=== PATIENT | male | born 1945 | race Caucasian/White ===

== ENCOUNTER 2017-04-17 08:00 | Outpatient (CLI) | payer MEDICARE, OTHER ==
[2017-04-17 19:26] LABS: PSA FREE 2.668 ng/mL (0.16-2.81)
[2017-04-17 19:29] LABS: PSA TOTAL 10.898 ng/mL (0.000-2.000)
== END 2017-04-17 08:01 | disposition home or self-care (01) ==
LOC: LAB.WCP 08:00
PROVIDERS: ATTEND Urology
DX: R97.20 Elevated prostate specific antigen [PSA] (principal)
CPT/HCPCS: 36415; 84154

== ENCOUNTER 2017-04-24 09:23 | Outpatient (CLI) | payer MEDICARE, OTHER ==
[2017-04-24 14:01] LABS: CHOL/HDL RATIO 2.5 (<5.0); CHOLESTEROL 151 mg/dL; HDL CHOLESTEROL 60 mg/dL; LDL/HDL RATIO 1.3 (<3.6); MAGNESIUM 1.9 mg/dL (1.7-2.8); TRIGLYCERIDES 78 mg/dL; VLDL CHOLESTEROL 16 mg/dL
== END 2017-04-24 09:24 | disposition home or self-care (01) ==
LOC: LAB.WCP 09:23
PROVIDERS: ATTEND Internal Medicine Cardiovascular Disease
DX: I10 Essential (primary) hypertension (principal); I47.1 Supraventricular tachycardia; I44.4 Left anterior fascicular block
CPT/HCPCS: 36415; 80061; 83735; 84443

== ENCOUNTER 2017-11-16 15:15 | Observation (INO) | payer MEDICARE, OTHER ==
--- NOTE | 2017-11-16 15:56 | ED Physician Documentation ---
PD HPI FOCAL NEURO - Stated complaint Stated Complaint: NUMBNESS - Chief complaint Chief Complaint: Neuro - History obtained from History obtained from: Patient - History of Present Illness Timing - onset: Today Timing - duration: Minutes (15) Timing - details: Abrupt onset, Now resolved Severity of deficit: Moderate Weakness: Hand, Leg, Right Numbness: Hand Associated symptoms: Headache. 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 He noted the right leg appeared to be weak at the thigh and kept giving out on him. 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 He states this lasted some 15 minutes and eventually resolved. He states that he did not stop to rest when symptoms started. He was at the [employer] was a hot day and he does not hydrate well. Review of Systems Constitutional: denies: Fever, Chills, Myalgias, Fatigue Eyes: denies: Loss of vision, Decreased vision, Photophobia Ears: reports: Loss of hearing. denies: Ear pain, Drainage/discharge Nose: denies: Rhinorrhea / runny nose, Congestion Throat: denies: Sore throat Cardiac: denies: Chest pain / pressure, Palpitations Respiratory: denies: Dyspnea, Cough GI: denies: Abdominal Pain, Nausea, Vomiting : denies: Dysuria, Frequency Skin: denies: Rash Musculoskeletal: denies: Neck pain, Back pain, Extremity pain Neurologic: reports: Focal weakness, Numbness, Headache. denies: Generalized weakness, Syncope, Seizure, Confused, Head injury, LOC PD PAST MEDICAL HISTORY - Past Medical History Cardiovascular: Hypertension Respiratory: None Neuro: None Endocrine/Autoimmune: Other : None HEENT: None Musculoskeletal: Osteoarthritis, Chronic back pain Derm: None - Past Surgical History Past Surgical History: Yes General: Other Derm: Skin cancer surgery - Present Medications Home Medications: Ambulatory Orders Medication Instructions Recorded Confirmed Metoprolol Tartrate 12.5 mg ORAL BID 10/21/14 10/22/14 Tamsulosin [Flomax] 0.4 mg ORAL BID 10/21/14 10/21/14 - Allergies Allergies/Adverse Reactions: Allergies Allergy/AdvReac Type Severity Reaction Status Date / Time oxacillin AdvReac Unknown Verified 10/22/14 08:52 - Social History Does the pt smoke?: No Smoking Status: Never smoker ETOH Use: Liquor Does the pt have substance abuse?: No - Immunizations Immunizations are current?: Yes - POLST Patient has POLST: No PD ED PE NORMAL - Vitals Vital signs reviewed: Yes (normal ) - General General: Alert and oriented X 3, No acute distress, Well developed/nourished - HEENT HEENT: Atraumatic, PERRL, EOMI, Dentition benign, Other (dry mucous membranes ) - Neck Neck: Supple, no meningeal sign, No bony TTP, No bruit - Cardiac Cardiac: RRR, No murmur - Respiratory Respiratory: No respiratory distress, Clear bilaterally - Abdomen Abdomen: Soft, Non tender - Back Back: No CVA TTP, No spinal TTP - Derm Derm: Normal color, Warm and dry, No rash - Extremities Extremities: No deformity, No edema - Neuro Neuro: Alert and oriented X 3, 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, No motor deficit, No sensory deficit, Normal speech Eye Opening: Spontaneous Motor: Obeys Commands Verbal: Oriented GCS Score: 15 - Psych Psych: Normal mood, Normal affect NIHSS - Time Time: 16:00 - Level of Consciousness Level of consciousness: (0) Alert, Keenly responsive LOC Questions: (0) Answers both Q's correct LOC Commands: (0) Performs both correctly - Gaze Best Gaze: (0) Normal - Visual Visual: (0) No loss - Facial Palsy Facial Palsy: (0) Normal, symmetrical movement - Motor Arms (both separate) Motor Arm (right): (0) No drift Motor Arm (left): (0) No drift - Motor Legs (both separate) Motor Leg (right): (0) No drift Motor Leg (left): (0) No drift - Limb Ataxia Limb Ataxia: (0) Absent - Sensory Sensory: (0) Normal - Best Language Best Language: (0) No aphasia - Dysarthria Dysarthria: (0) Normal - Extinction and Inattention (formally neg Extinction and inattention: (0) No abnormality - Total Score/Results Total Score/Result: 0 Results - Vitals Vitals: Vital Signs - 24 hr 11/16/17 11/16/17 15:22 17:24 Temperature 36.0 C L 36.4 C L Heart Rate 75 60 Respiratory 18 18 Rate Blood Pressure 116/73 129/83 H O2 Saturation 95 95 Oxygen O2 Source Room air - EKG (time done) 1535 Rate: Rate (enter#) (71) Rhythm: NSR, LAE [place]: LAD Other comments: Other comments (early transition) Compare to prior EKG: Old EKG unavailable Computer interpretation: Disagree with computer (I do not see ST elevation in the inferior leads. ) - Labs Labs: Laboratory Tests 11/16/17 11/16/17 11/16/17 16:40 16:40 16:40 WBC 6.5 RBC 5.09 Hgb 14.9 Hct 44.2 MCV 86.9 MCH 29.3 MCHC 33.7 RDW 13.6 Plt Count 156 MPV 8.9 Neut # (Auto) 4.1 Lymph # (Auto) 1.7 [place] # (Auto) 0.5 Eos # (Auto) 0.1 Baso # (Auto) 0.0 Absolute Nucleated RBC 0.00 Nucleated RBC % 0.0 Sodium 139 Potassium 4.1 Chloride 109 Carbon Dioxide 22 Anion Gap 8.0 BUN 24 H Creatinine 1.4 H Estimated GFR (MDRD) 50 L Glucose 99 Calcium 9.3 Total Bilirubin 1.2 H AST 20 ALT 18 Alkaline Phosphatase 53 Troponin I < 0.04 Total Protein 5.9 L Albumin 4.0 Globulin 1.9 L Albumin/Globulin Ratio 2.1 Lipase 35 - Rads (name of study) CT head without Radiology: Prelim report reviewed (Impression: 1. No acute or focal intracranial abnormality. Nonfocal white matter disease. 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 He does have hypertension but is otherwise healthy. CT is without hemorrhage and with microangiopathy. - Sepsis Event Vital Signs: Vital Signs - 24 hr 11/16/17 11/16/17 15:22 17:24 Temperature 36.0 C L 36.4 C L Heart Rate 75 60 Respiratory 18 18 Rate Blood Pressure 116/73 129/83 H O2 Saturation 95 95 Oxygen O2 Source Room air Departure - Departure Disposition: 66 [facility] DC/Xfer Clinical Impression: TIA (transient ischemic attack) Qualifiers: Transient cerebral ischemia type: unspecified Qualified Code(s): G45.9 - Transient cerebral ischemic attack, unspecified Condition: Stable
[2017-11-16] MEDS ORDERED: ASPIRIN CHEW 81 MG TABLET PO STA (16:27)
[2017-11-16 16:45] LABS: BASOPHILS % (AUTO) 0.6 %; EOSINOPHILS # (AUTO) 0.1 10^3/uL (0.0-0.7); EOSINOPHILS % (AUTO) 2.2 %; HGB - HEMOGLOBIN 14.9 g/dL (14.0-18.0); LYMPHOCYTES # (AUTO) 1.7 10^3/uL (1.5-3.5); LYMPHOCYTES % (AUTO) 26.1 %; MEAN CORPUSCULAR HEMOGLOBIN 29.3 pg (27.0-31.0); MEAN CORPUSCULAR HGB CONC 33.7 g/dL (32.0-36.0); MEAN CORPUSCULAR VOLUME 86.9 fL (80.0-94.0); MEAN PLATELET VOLUME 8.9 fL (7.4-11.4); MONOCYTES # (AUTO) 0.5 10^3/uL (0.0-1.0); MONOCYTES % (AUTO) 8.3 %; NEUTROPHILS # (AUTO) 4.1 10^3/uL (1.5-6.6); NEUTROPHILS % (AUTO) 62.8 %; PLT - PLATELET COUNT 156 10^3/uL (130-450); RED BLOOD COUNT 5.09 10^6/uL (4.70-6.10); RED CELL DISTRIBUTION WIDTH 13.6 % (12.0-15.0); WHITE BLOOD COUNT 6.5 x10^3/uL (4.8-10.8)
--- NOTE | 2017-11-16 17:06 | CT Report ---
Procedure Date: 11/16/2017 Accession Number: [id number] / [id number] Procedure: CT - Head W/O CPT Code: FULL RESULT: EXAM: CT HEAD EXAM DATE: 11/16/2017 04:50 PM. CLINICAL HISTORY: TIA with right sided symptoms. COMPARISON: MRI 11/18/2005. TECHNIQUE: Multiaxial CT images were obtained from the foramen magnum to the vertex. Reformats: Coronal. IV contrast: None. In accordance with CT protocol optimization, one or more of the following dose reduction techniques were utilized for this exam: automated exposure control, adjustment of mA and/or KV based on patient size, or use of iterative reconstructive technique. FINDINGS: Parenchyma: There is mild nonfocal periventricular white matter hypodensity. Negative for acute intracranial hemorrhage. No midline shift or mass effect. Extraaxial Spaces: No subdural or epidural collections identified. Ventricles: Normal in size and position. Sinuses and Orbits: There is ethmoid sinus mucosal thickening. No air-fluid level. Bones: No evidence of fracture or calvarial defect. Other: None. IMPRESSION: 1. No acute or focal intracranial abnormality. 2. Nonfocal white matter disease. Nonspecific but most commonly age related chronic microangiopathy. RADIA
[2017-11-16 17:09] LABS: ALBUMIN/GLOBULIN RATIO 2.1 (1.0-2.2); BILIRUBIN,TOTAL 1.2 mg/dL (0.2-1.0); CALCIUM 9.3 mg/dL (8.5-10.3); CREATININE 1.4 mg/dL (0.6-1.2); TOTAL PROTEIN 5.9 g/dL (6.7-8.2)
[2017-11-16] MEDS ORDERED: SODIUM CHLORIDE FLUSH 0.9% 10 ML SYRINGE IVP PRN (18:26)
[2017-11-16] MEDS ORDERED: ONDANSETRON 4 MG/2 ML VIAL IVP PRN (18:26)
[2017-11-16] MEDS ORDERED: ACETAMINOPHEN 325 MG TABLET PO PRN (18:26)
--- NOTE | 2017-11-16 18:38 | HISTORY & PHYSICAL EXAMINATION ---
Chief Complaint - Chief Complaint Chief Complaint: TIA History of Present Illness - Admitted From Admitted From:: ER - History Obtained From History obtained from: pt - History of Present Illness HPI Comment/Other: is a 72-yrs-old male with a PMH significant for HTN, CKD, BPH, Osteoarthritis, who present ER for complaint of right upper and low extremities weakness. 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 All this symptoms lasted about 15 minutes then totally resolved before he came to ER department. He denies headache, vision change, chest pain, shortness of breath, fever, chill, cough. CT of head is unremarkable. BUN is 24, creatinine is 1.4 as his baseline. pt was admitted for TIA workup in the observation unit. History - Past Medical History Cardiovascular: reports: Hypertension Respiratory: reports: None Neuro: reports: None Endocrine/Autoimmune: reports: Other : reports: None HEENT: reports: None Musculoskeletal: reports: Osteoarthritis, Chronic back pain Derm: reports: None - Past Surgical History General: reports: Other Derm: reports: Skin cancer surgery - Family & Social History Family History: Mother: , Alzheimer's Disease, CAD, Father: , Cancer, CVA/TIA Family History Comment/Other: pt is living with at [facility], the couple has no child Living arrangement: At home Living Situation: With spouse/s.o. Social History Notes: pt denies cigarette smoking, alcohol and drug problem. - Substance History Use: Uses substance without health or social issues: NONE Abuse: Recurrent use of substance despite neg consequences: NONE - POLST Patient has POLST: Yes POLST Status: DNR Meds/Allgy - Home Medications Home Medications: Ambulatory Orders Medication Instructions Recorded Confirmed Metoprolol Tartrate 12.5 mg ORAL BID 10/21/14 11/16/17 Tamsulosin [Flomax] 0.4 mg ORAL BID 10/21/14 10/21/14 Aspirin [Aspirin EC] 81 mg PO DAILY 11/16/17 11/16/17 Cholecalciferol (Vitamin D3) 2,000 unit PO .Q48HR 11/16/17 11/16/17 [Vitamin D3] Fluticasone [Flonase] 1 sprays MINA BID 11/16/17 11/16/17 Lactobacillus Acidophilus 1 each PO DAILY 11/16/17 11/16/17 [Probiotic Acidophilus] Multivitamin [Theragran] 1 each PO DAILY 11/16/17 11/16/17 [place]-3/Dha/Epa/Fish Oil [Fish Oil 1,000 mg PO DAILY 11/16/17 11/16/17 Conc 1,000 mg Softgel] - Allergies Allergies/Adverse Reactions: Allergies Allergy/AdvReac Type Severity Reaction Status Date / Time oxacillin AdvReac Unknown Verified 10/22/14 08:52 Review of Systems - Constitutional Constitutional: denies: Fatigue, Fever, Chills, Malaise, Weakness, Poor appetite , Diaphoresis, Night sweats, Weight gain, Weight loss - Eyes Eyes: denies: Pain, Irritation, Amaurosis, Blurred vision, Spots in vision, Field loss, Vision loss, Dipolpia, Corrective lenses - Ears, Nose & Throat Ears, Nose & Throat: denies: Ear pain, Hearing loss, Hearing aids, Vertigo, Nasal pain, Nasal discharge, Nosebleeds, Nasal congestion, Postnasal drainage, Dentures, Sore throat, Hoarseness, Mouth lesions, Dental decay - Cardiovascular Cariovascular: denies: Irregular heart rate, Palpitations, Chest pain, Edema, Lightheadedness, Syncope, Exertional dyspnea, Decr. exercise tolerance - Respiratory Respiratory: denies: Cough, Sputum production, Wheezing, Snoring, Hemoptysis, Orthopnea, SOB at rest, SOB with exertion - Gastrointestinal Gastrointestinal: denies: Abdominal pain, Abdominal distention, Constipation, Diarrhea, Change in bowel habits, Rectal bleeding, Black stools, Bloody stools, Nausea, Vomiting, Bile emesis, Coffee grounds emesis, Reflux/heartburn, Bloating - Genitourinary Genitourinary: denies: Dysuria, Frequency, Urgency, Hematuria, Incontinence, Flank pain, Nocturia, Urethral discharge, Sexual dysfunction, Other - Musculoskeletal Musculoskeletal: denies: Muscle pain, Back pain, Muscle aches, Stiffness, Limited range of motion, Muscle weakness, Gout, Joint pain, Joint swelling - Integumentary Integumentary: denies: Rash, Pruritis, Lesions, Dryness, Lumps, Acne, Pigment changes, Nail changes - Neurological Neurological: reports: Focal weakness, Dizziness, Numbness, Memory problems, Abnormal gait, Incoordination. denies: General weakness, Headache, Pre- existing deficit, Seizures, Slurred speech - Psychiatric Psychiatric: denies: Depression, Anxiety, Suicidal, Delusions, Hallucinations, Homicidal - Endocrine Endocrine: denies: Polyuria, Polydypsia, Polyphagia, Intolerance to cold, Intolerance to heat - Hematologic/Lymphatic Hematologic/Lymphatic: denies: Anemia, Bruising, Petechiae, Blood clots, Lymphadenopathy, Bleeding tendencies, Recurrent infections Exam - Vital Signs Reviewed Vital Signs: Yes Vital Signs: Vital Signs x48h Temp Pulse Resp BP Pulse Ox 11/16/17 17:24 36.4 C L 60 18 129/83 H 95 11/16/17 15:22 36.0 C L 75 18 116/73 95 - Physical Exam General Appearance: positive: No acute distress, Alert. negative: Lethargic Eyes Bilateral: positive: Normal inspection, PERRL, No lid inflammation, Conjunctivae nml ENT: positive: ENT inspection nml, Pharynx nml, No signs of dehydration. negative: Purulent nasal drainage, Pharyngeal erythema, Oral lesions Neck: positive: Nml inspection, Thyroid nml, No JVD, Trachea midline. negative : Thyromegaly, Lymphadenopathy (R), Lymphadenopathy (L), Stiff neck, Carotid bruit, Swelling/bruising, Tracheal deviation Respiratory: positive: Chest non-tender, No respiratory distress, Breath sounds nml. negative: Wheezes, Rales, Rhonchi Cardiovascular: positive: Regular rate & rhythm, No murmur, No gallop. negative : Irregularly irregular, Extrasystoles, Tachycardia, Bradycardia, JVD present, Systolic murmur, Diastolic murmur Peripheral Pulses: positive: 2+ Abdomen: positive: Non-tender, No organomegaly, Nml bowel sounds, No distention. negative: Tenderness, Guarding, Rebound Back: positive: Nml inspection. negative: CVA tenderness (R), CVA tenderness (L ) Skin: positive: Color nml, No rash, Warm, Dry. negative: Cyanosis, Diaphoresis , Pallor, Skin rash Extremities: positive: Non-tender, Full ROM, Nml appearance. negative: Calf tenderness, Joint swelling, Caity's sign/cords Neurologic/Psychiatric: positive: Oriented x3, Motor nml, Sensation nml, Mood/ affect nml. negative: Weakness, Sensory loss, Facial droop, Slurred/abnml speech, Depressed mood/affect Conclusion/Plan - Problem List (1) TIA (transient ischemic attack) Conclusion/Plan: pt report he present TIA symptoms, right side focus deficits, and resolved around [address] of head is unremarkable MRI of head, US of Carotid, ECHO, follow up Aspirin, Lipitor allow BP rise, and vital monitor Neuro check Lipid panel test PT/OT evaluation and treatment as needed Qualifiers: Transient cerebral ischemia type: unspecified Qualified Code(s): G45.9 - Transient cerebral ischemic attack, unspecified (2) Chronic renal failure, stage 3 (moderate) Conclusion/Plan: renal function status remain at pt's baseline gently hydration, avoid nephrotoxical agents Lab, vital monitor (3) HTN (hypertension) Conclusion/Plan: stable, allow BP rise, hold home BP now. (4) BPH (benign prostatic hyperplasia) Conclusion/Plan: stable, will reconcile home meds after pharmacy verify (5) Osteoarth NOS-unspec Conclusion/Plan: stable, no acute pain, follow up (6) DVT prophylaxis Conclusion/Plan: SCD and Lovenox (7) Do not intubate, cardiopulmonary resuscitation (CPR)-only code status Conclusion/Plan: pt request DNR - Lab Results Fish Bones: 11/17/17 05:28 11/17/17 05:28 Core Measures - Anticipated LOS I expect patient to be DC'd or transferred within 96 hours.: Yes - DVT/VTE - Prophylaxis VTE/DVT Device ordered at admit?: Yes VTE/DVT Prophylaxis med ordered at admit?: Yes
[2017-11-16] MEDS: SODIUM CHLORIDE 0.9% 1,000 ML IV SCH (19:59)
[2017-11-16] MEDS: FLUTICASONE NASAL SPRAY NAS SCH (20:27)
[2017-11-16] MEDS: ATORVASTATIN 40 MG TABLET PO SCH ×2 (22:46→22:48)
[2017-11-17 01:42] LABS: BILIRUBIN,URINE NEGATIVE (NEGATIVE); GLUCOSE, URINE (UA) NEGATIVE (NEGATIVE); KETONES,URINE (UA) NEGATIVE (NEGATIVE); LEUKOCYTE ESTERASE, URINE NEGATIVE (NEGATIVE); NITRITE,URINE NEGATIVE (NEGATIVE); OCCULT BLOOD,URINE NEGATIVE (NEGATIVE); PROTEIN,URINE NEGATIVE (NEGATIVE); UROBILINOGEN,URINE 0.2 (NORMAL) E.U./dL (NORMAL)
[2017-11-17 01:44] LABS: CLARITY,URINE CLEAR (CLEAR)
--- NOTE | 2017-11-17 02:30 | Ultrasound Report ---
Procedure Date: 11/16/2017 Accession Number: [id number] / [id number] Procedure: US - Carotid Doppler Complete CPT Code: FULL RESULT: EXAM: BILATERAL CAROTID AND VERTEBRAL ARTERY DUPLEX DOPPLER ULTRASOUND: EXAM DATE: 11/16/2017 10:48 PM CLINICAL HISTORY: TIA. COMPARISON: None. TECHNIQUE: Grayscale imaging, color Doppler, and duplex spectral Doppler were used to evaluate the carotid and vertebral arteries bilaterally. Static images were obtained. FINDINGS: Right thyroid nodule incidentally noted, measuring 1.2 x 1.1 x 2.1 cm. There is plaquing in the carotid bifurcation and internal carotid arteries bilaterally. No hemodynamically significant stenosis is seen. Normal antegrade flow is present in bilateral vertebral arteries. VELOCITIES (cm/sec): Right: RCCA Prox: PSV 68.2 cm/sec. RCCA Dist: PSV 56.8 cm/sec, EDV 17.3 cm/sec. RECA: PSV 66.8 cm/sec. R Bulb: PSV 31.7 cm/sec, EDV .8 cm/sec, ICA/CCA ratio .6. PRINCESS Prox: PSV 57.1 cm/sec, EDV 27.3 cm/sec, ICA/CCA ratio 1. PRINCESS Mid: PSV 63.4 cm/sec, EDV 23.6 cm/sec, ICA/CCA ratio 1.1. PRINCESS Dist: PSV 73.6 cm/sec, EDV 19.0 cm/sec, ICA/CCA ratio 1.3. RVA: PSV 51 cm/sec. RVA flow direction: Antegrade. Left: LCCA Prox: PSV 62.7 cm/sec. LCCA Dist: PSV 54.6 cm/sec, EDV 15.6 cm/sec. LECA: PSV 59 cm/sec. L Bulb: PSV 47 cm/sec, EDV .6 cm/sec, ICA/CCA ratio .9. LICA Prox: PSV 49.8 cm/sec, EDV 12.8 cm/sec, ICA/CCA ratio .9. LICA Mid: PSV 46.7 cm/sec, EDV 18.2 cm/sec, ICA/CCA ratio .9. LICA Dist: PSV 59.9 cm/sec, EDV 20.9 cm/sec, ICA/CCA ratio 1.1. LVA: PSV 60.5 cm/sec. LVA flow direction: Antegrade. ICA diameter stenosis: Right: <50% by velocity and <70% by NASCET criteria. Left: <50% by velocity and <70% by NASCET criteria. IMPRESSION: 1. Bilateral carotid artery plaquing. 2. In the right carotid artery there are no elevated carotid artery velocities to suggest hemodynamically significant stenosis. 3. In the left carotid artery there are no elevated carotid artery velocities to suggest hemodynamically significant stenosis. 4. Normal antegrade flow is present in bilateral vertebral arteries. 5. Right thyroid nodule incidentally noted. Recommend nonemergent formal thyroid ultrasound followup. General Recommendations: Stenosis =50% ICA - Follow-up ultrasound 6-12 months Stenosis <50% ICA - High Risk Patient with plaque - Follow-up ultrasound 1-2 years Normal Study but High Risk Patient - Follow-up ultrasound 3-5 years Management recommendations and diagnostic criteria are based on current IAC endorsed standards in Carotid Artery Stenosis: Grayscale and Doppler Ultrasound Diagnosis. Validated velocity measurements with angiographic measurements and velocity criteria are extrapolated from diameter data as defined by the Society of Radiologists in Ultrasound Consensus Conference Radiology 2003; 229;340-346. RADIA
[2017-11-17] MEDS: SODIUM CHLORIDE FLUSH 0.9% 10 ML SYRINGE IVP SCH ×2 (03:10→08:23)
[2017-11-17 06:03] LABS: BASOPHILS % (AUTO) 0.7 %; EOSINOPHILS # (AUTO) 0.3 10^3/uL (0.0-0.7); EOSINOPHILS % (AUTO) 6.1 %; HGB - HEMOGLOBIN 14.5 g/dL (14.0-18.0); LYMPHOCYTES # (AUTO) 2.3 10^3/uL (1.5-3.5); LYMPHOCYTES % (AUTO) 39.4 %; MEAN CORPUSCULAR HEMOGLOBIN 29.3 pg (27.0-31.0); MEAN CORPUSCULAR HGB CONC 33.6 g/dL (32.0-36.0); MEAN CORPUSCULAR VOLUME 87.3 fL (80.0-94.0); MEAN PLATELET VOLUME 8.7 fL (7.4-11.4); MONOCYTES # (AUTO) 0.5 10^3/uL (0.0-1.0); MONOCYTES % (AUTO) 9.5 %; NEUTROPHILS # (AUTO) 2.5 10^3/uL (1.5-6.6); NEUTROPHILS % (AUTO) 44.3 %; PLT - PLATELET COUNT 142 10^3/uL (130-450); RED BLOOD COUNT 4.95 10^6/uL (4.70-6.10); RED CELL DISTRIBUTION WIDTH 13.9 % (12.0-15.0); WHITE BLOOD COUNT 5.7 x10^3/uL (4.8-10.8)
[2017-11-17 06:08] LABS: ALBUMIN 3.6 g/dL (3.2-5.5); ALBUMIN/GLOBULIN RATIO 1.7 (1.0-2.2); ALKALINE PHOSPHATASE 50 IU/L (42-121); ALT ALANINE AMINOTRANSFERASE 18 IU/L (10-60); AST ASPARTATE AMINOTRANSFERASE 19 IU/L (10-42); BUN - BLOOD UREA NITROGEN 24 mg/dL (6-20); CALCIUM 8.8 mg/dL (8.5-10.3); CARBON DIOXIDE - CO2 26 mmol/L (21-32); CHLORIDE 109 mmol/L (101-111); CHOLESTEROL 149 mg/dL; CREATININE 1.4 mg/dL (0.6-1.2); GFR - MDRD 50 (>89); GLUCOSE 103 mg/dL (70-100); HDL CHOLESTEROL 49 mg/dL; LDL CHOLESTEROL,CALCULATED 90 mg/dL; LDL/HDL RATIO 1.8 (<3.6); SODIUM 141 mmol/L (135-145); TOTAL PROTEIN 5.7 g/dL (6.7-8.2); VLDL CHOLESTEROL 10 mg/dL
[2017-11-17] MEDS: SODIUM CHLORIDE 0.9% 1,000 ML IV SCH (08:04)
[2017-11-17] MEDS: FLUTICASONE NASAL SPRAY NAS SCH (08:22)
[2017-11-17] MEDS ORDERED: MULTIVITAMIN TABLET PO SCH (09:00)
[2017-11-17] MEDS ORDERED: METOPROLOL TARTRATE 12.5 MG PO SCH (09:00)
[2017-11-17] MEDS ORDERED: POLYETHYLENE GLYCOL 3350 17 GM PACKET PO SCH (09:00)
[2017-11-17] MEDS ORDERED: OMEGA-3 ACID ETHYL ESTERS 1 GM CAPSULE PO SCH (09:00)
[2017-11-17] MEDS ORDERED: SACCHAROMYCES BOULARDII 250 MG CAPSULE PO SCH (09:00)
[2017-11-17] MEDS ORDERED: FAMOTIDINE 20 MG TABLET PO SCH (09:00)
[2017-11-17] MEDS ORDERED: ASPIRIN EC 81 MG TABLET PO SCH (09:00)
[2017-11-17] MEDS ORDERED: ENOXAPARIN 40 MG/0.4 ML SYRINGE SUBQ SCH (09:00)
--- NOTE | 2017-11-17 15:28 | Discharge Plan ---
Discharge Plan Disposition: 01 Home, Self Care Condition: Stable Prescriptions: amLODIPine [Norvasc] 5 mg PO DAILY #30 tablet Atorvastatin [Lipitor] 40 mg PO QPM #30 tablet Diet: Regular Activity Restrictions: No Restrictions Shower Restrictions: No Driving Restrictions: No Weight Bearing: Full Weight Additional Instructions or Follow Up instructions: Possible TIA/ transient ischemic attack You came to the hospital w/ symptoms concerning for TIA which included R thigh numbness, you were able to bear weight, but per you it "felt like it wanted to go out o you) (but you were able to walk). and L hand numbness /paresthesias of the 3-5th finger, (although thumb and middle finger felt normal per you which started when you were out at the gun range (and you noted that you may have been a little under hydrated) risk factors, + hypertension (blood pressure was NOT elevated at time of presentation) remote family history (mother very elderly at time of stroke) no smoking ,not diabetic, Work up included 1) telemetry; (no irregular heart rhythms, 2) heart enzymes normal 3)carotid ultrasound ; no hemodynamically significant stenosis 4)Echocardiogram (preliminary read) ; normal heart size and function, normal ejection fraction (70%), no valvular abnormalities, no wall motion abnormality Continue ASA 81 mg daily, start statin, until neurology f/u 5) mri brain (you have copy of report): mild to moderate amount White matter disease supratentorial brain/ scattred thru periventricular, deep, subcortical white matter bilaterally; mild interval progression in white matter diseae since 2005 study; Most consistent with chronic microangiopathy; - small areas of round magneitic artifact in supratentorial brain/ mostly in thalamus with NO corresponding calcification; most likely artifact s hemoosiderin from prior micorhemorrhage. Differential includes amyloid angiopathy vs chronic hypertension; Distribution most suggestive of chronic hypertension Lipid Panel Total cholesterol 149 Triglyceries 50 LDL 90 HDL 49 Plan; Adding amlodipine to your metoprolol for better blood pressure control start amlodipine at a low dose (given your concern re:morning blood pressure PCP to titrate dose of amlodipine continue statin/ atorvastatin started here recommend Dr Kapadia consider an neurology consultation; if symptoms not consistent with TIA, (? if hand symptoms were Cspine related) he may find statin not needed. Paresthesias can be related to thalamus -Hypertension; blood pressure was ~ 122/70's on presentation, but sl higher, 150 /92, 147/91 in afternoon on your home metoprolol Your heart rate of 60 does not leave room to incrase the metoplrol we are adding amlodipine as above Uninephric/ single kidney ? chronic kidney injury On presentation your BUN/Cr were 24/1.4 (after hydration overnight this was unchanged on 11/18). -Would recommend checking with your PCP whether this is your baseline continue protecting your kidney by keeping yourself hydrated, and no NSAIDS ( i.e. no ibuprofen) consider recheck renal function next week if these values are NOT your baseline No Smoking: If you smoke, Please STOP! Call for help. Follow-up with: Karson Kapadia MD [Primary Care Provider] - 1 Week (Reeval BP control, Patient wishes to discuss statin (? TIA) titrate up amlodipine (pt reported low morning pressure/ starting 2.5/day but clearly should be able to titrate soon Rec outpt neurology eval (see MRI report) reeval if current renal function (24/1.4) unchanged w/ IVF is baseline)
[2017-11-17 16:28] VITALS: BP 145/83
--- NOTE | 2017-11-17 16:48 | MRI Report ---
Procedure Date: 11/17/2017 Accession Number: [id number] / [id number] Procedure: MRI - Brain W/O CPT Code: FULL RESULT: MRI BRAIN WITHOUT CONTRAST INDICATION: 72-year-old male with confusion. Concern for TIA/CVA. TECHNIQUE: 1. T1 sagittal. 2. Fat-saturated T2 coronal. 3. Axial T1 3-D, FLAIR, T2, T2* and DWI. COMPARISON: Head CT 11/16/2017 and brain MRI 11/18/2005. FINDINGS: There is mild generalized prominence of the cerebral cortical sulci, essentially unchanged when compared to the previous MRI study from 11/2005. The third and lateral ventricles are normal in size. No hydrocephalus. A mild to moderate amount of white matter disease is identified in the supratentorial brain, manifested as focal and confluent T2 hyperintensities that are scattered throughout the periventricular, deep, and subcortical white matter bilaterally. There has been mild interval progression in the white matter disease since the MRI study from 2005. A few tiny T2 hyperintensities are demonstrated in the thalami; however, the hyperintensity suppresses on the T2 FLAIR sequence. Therefore, these appear to represent dilated perivascular spaces rather than gliosis from previous ischemic injury or other pathology. Multiple, dilated perivascular spaces are demonstrated in the basal ganglia bilaterally. Signal intensity of cortex and white matter is otherwise unremarkable. Flow voids are demonstrated in the main intracranial arteries. No abnormal diffusion restriction is demonstrated. There are 4 or 5, small, rounded foci of magnetic susceptibility artifact in the upper and the mesial right thalamus. In addition, the cluster of multiple, small rounded foci of magnetic susceptibility artifact are seen in the left pulvinar and a few of these lesions are seen in the mesial left thalamus. There appears to be a tiny, rounded focus of magnetic susceptibility artifact in the mesial, mid to posterior left temporal lobe (image 11 of series 801). No other definite, focal abnormality is demonstrated on the T2*GRE sequence. No abnormal extraaxial fluid collection. No mass effect or midline shift. Limited assessment of the orbits reveals no gross pathology. Changes of previous ocular lens extraction are noted on the right. Mucosal thickening seen scattered throughout the ethmoid air cells and both frontal sinuses. No air-fluid levels demonstrated. The maxillary and sphenoid sinuses appear clear. No mastoid or middle ear effusion. Marrow signal is seen in the regional skeletal structures is unremarkable. IMPRESSION: 1. A mild to moderate amount of white matter disease is identified in the supratentorial brain, likely representing chronic microangiopathy. 2. Small rounded foci of magnetic susceptibility artifact are seen within the parenchyma of the supratentorial brain, most numerous in the thalami. No calcifications are identified in the thalami on head CT. Therefore, the findings probably represent hemosiderin from previous microhemorrhages. Main differential diagnostic considerations for microhemorrhages in a patient of this age are amyloid angiopathy versus chronic hypertension. The central distribution is more suggestive of chronic hypertension. 3. No other significant intracranial findings on this unenhanced brain MRI. In particular, no evidence of recent infarction on diffusion weighted imaging.
[2017-11-18] MEDS ORDERED: CHOLECALCIFEROL 1,000 UNIT TABLET PO SCH (09:00)
--- NOTE | 2017-11-19 08:39 | DISCHARGE SUMMARY ---
Physician: DALY Rai DATE OF ADMISSION: 11/16/2017 DATE OF DISCHARGE: 11/17/2017 PRIMARY CARE PROVIDER: Dr. Ryan Kapadia. PRIMARY DISCHARGE DIAGNOSES 1. Possible transient ischemic attack. 2. Volume depletion, mild. 3. Uninephric with possible CKD (baseline Cr unknnown). 4. Hypertension. 5. 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 CONSULTATIONS: None. PROCEDURES: None. DIAGNOSTIC IMAGING STUDIES 1. CT head 11/16/2017: No acute finding. Nonfocal white matter disease. 2. Carotid duplex ultrasound 11/16/2017. a. Bilateral carotid artery plaquing. b. No hemodynamically significant stenosis on either side. c. Incidental finding, right thyroid nodule. 3. Brain MRI 11/17/2017: a. Mild to moderate white matter disease in supratentorial brain, likely chronic microangiopathy. b. Small rounded foci of magnetic susceptibility artifact in the parenchyma of the supratentorial brain, most numerous in the thalami, no calcifications; therefore , most likely this represents hemosiderin staining from prior micro-hemorrhages. Differential diagnosis includes amyloid angiopathy; however, distribution most consistent with chronic hypertension. No area of recent infarct. LABORATORY STUDIES Admission sodium 139, potassium 4.1, chloride 109, bicarbonate 22, BUN 24, and creatinine 1.4; chemistry panel otherwise unremarkable. On discharge, following IV hydration, his BUN and creatinine were unchanged at 24 and 1.4. (baseline unknown) TC 149 LDL 90 HDL 49 TG 50 Admission white count 6.5, hemoglobin and hematocrit 14.9 and 44.2, respectively ; 156,000 platelets with no remarkable change at the time of discharge. BRIEF HOSPITAL COURSE 1. Please see [facility] nurse practitioner's admission history and physical dated November 16 for details. 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 He was able to move the lower part of his leg, and he was able to bear weight, although he felt like his leg was going to go out from beneath him, and he felt like it "wasn't there." Ths persisted ~ 15 minutes. There was no fall. He eventually sat down til it resolved. He was able to diamond picker his bag with his Right hand, but note right hand had a paresthesia of the third, fourth and fifth digits. They didnt seem to "work." He was, however, able to use his thumb and index finger and diamond picker his bag and walk to the main building. He does note that he has had some Cevical spine stenosis findings in the past. He presented to the emergency room, and there was concern whether these could represent TIA symptoms. This was resolved by the time of presentation. His risk factors for stroke or TIA are only for hypertension. His smoking history is remote, not diabetic, and no known hyperlipidemia. Imaging studies, as above, showed no acute area of infarct. However, he does have significant white matter disease versus amyloid angiopathy, which is less likely given his known hypertension. The patient is already on metoprolol but blood pressure left room for additional agent (HR left no room for increased beta tobin dose.) Because he had some concerns about the morning blood pressure being "low" at home (110), he was started on a very conservative dose of amlodipine, which can be titrated by his primary care physician, and he should have room to increase from the very conservative dose of 2.5, which he was discharged with. He also is starting a statin. Would consider having an outpatient neurology consultation to review his symptoms, which could conceivably represent thalamic TIA as far as the paresthesias and whether he truly needs to be on the statin if the symptoms are felt by a neurology specialist to not represent TIA symptoms. 2. Uninephric status with chronic kidney disease. His baseline BUN and creatinine are not known. They were 24 and 1.4 on presentation and did not change with IV hydration. Advised that these values be compared with his baseline to ensure that this is not a worsening of his single kidney's function. 3.) R thyroid nodule; incidental finding on CT OUtpatient thyroid ultrasound recommended DISCHARGE MEDICATIONS 1. New prescription for atorvastatin 40 mg once daily at bedtime. The patient will discuss this with his PCP as well. 2. Amlodipine 5 mg tablet, take 1/2 tablet once daily and to be titrated further by his home physician. He will continue on his metoprolol tartrate 12.5 mg twice daily. 3. Flonase 1 spray nasally twice daily. 4. Multivitamin once daily. 5. Aspirin 81 mg once daily. 6. Cholecalciferol 2000 units twice every 2 days. 7. Fish oil 1000 mg every day. 8. Tamsulosin 0.4 mg once daily. 9. Valium 5 mg if needed daily for anxiety. DISCHARGE INSTRUCTIONS: As above, the patient is starting the low-dose amlodipine. Titrate for goal blood pressure of under <140/<90. Consider outpatient neurology evaluation. Outpatient thyroid ultrasound to evaluate R thyroid nodule Physical Exam on the day of discharge AFeb, HR 57 145/83, 147/91 RR 17 Sa02 97% Ra General; thin, tall , up and about in room with no difficulty, alert, oriented appropriate, EOMI, CN 2-12 intact Bilat UE hand pattern cutter and finger splaying full strength 5/5, LE plantar / dorsi flexion 5/5, no paresthesias, equal sensation Chest; CTA unlabored resps on RA Heart Reg S1S2 no extra sounds, no peripheral edema Abd; reba, + BS Ext; no edema, TD[facility]2017 [facility]
== END 2017-11-17 18:12 | disposition home or self-care (01) ==
LOC: ED 15:15 → OBS 18:26
PROVIDERS: ADMIT Nurse Practitioner Gerontology; ATTEND Nurse Practitioner
DX: R20.0 Anesthesia of skin (principal); R20.2 Paresthesia of skin; R53.1 Weakness; R26.2 Difficulty in walking, not elsewhere classified; E86.0 Dehydration; M48.02 Spinal stenosis, cervical region; I12.9 Hypertensive chronic kidney disease with stage 1 through stage 4 chronic kidney disease, or unspecified chronic kidney disease; N18.3 Chronic kidney disease, stage 3 (moderate); N40.0 Benign prostatic hyperplasia without lower urinary tract symptoms; M19.90 Unspecified osteoarthritis, unspecified site; Z90.5 Acquired absence of kidney; Z87.891 Personal history of nicotine dependence; Z85.828 Personal history of other malignant neoplasm of skin; Z66 Do not resuscitate; Z82.3 Family history of stroke; Z79.82 Long term (current) use of aspirin; Z79.899 Other long term (current) drug therapy
CPT/HCPCS: 36415; 70450; 70551; 80053; 80061; 81003; 83690; 83735; 84484; 85025; 93005; 93306; 93880; 96360; 96361; 99284; 99285; A9270; G0378; 81001; 83721; 87086

== ENCOUNTER 2017-12-08 15:11 | Outpatient (CLI) | payer MEDICARE, OTHER ==
[2017-12-08 19:47] LABS: PSA FREE 3.59 ng/mL (0.16-2.81)
[2017-12-08 19:48] LABS: PSA TOTAL 14.14 ng/mL (0.000-2.000)
== END 2017-12-08 15:12 | disposition home or self-care (01) ==
LOC: LAB.WCP 15:11
PROVIDERS: ATTEND Urology
DX: R97.20 Elevated prostate specific antigen [PSA] (principal)
CPT/HCPCS: 36415; 84154

== ENCOUNTER 2018-04-23 14:21 | Outpatient (CLI) | payer MEDICARE, OTHER ==
[2018-04-23 19:40] LABS: PSA FREE 2.87 ng/mL (0.16-2.81)
[2018-04-23 19:41] LABS: PSA TOTAL 10.39 ng/mL (0.000-2.000)
== END 2018-04-23 23:59 | disposition home or self-care (01) ==
LOC: LAB.WCP 14:21
PROVIDERS: ATTEND Urology
DX: R97.20 Elevated prostate specific antigen [PSA] (principal)
CPT/HCPCS: 36415; 84153; 84154

== ENCOUNTER 2018-09-17 08:00 | Outpatient (CLI) | payer MEDICARE, OTHER ==
[2018-09-17 19:50] LABS: BASOPHILS % (AUTO) 0.5 %; EOSINOPHILS # (AUTO) 0.2 10^3/uL (0.0-0.7); EOSINOPHILS % (AUTO) 1.9 %; HGB - HEMOGLOBIN 14.6 g/dL (14.0-18.0); LYMPHOCYTES # (AUTO) 1.7 10^3/uL (1.5-3.5); MEAN CORPUSCULAR HGB CONC 33.5 g/dL (32.0-36.0); MEAN CORPUSCULAR VOLUME 86.5 fL (80.0-94.0); MEAN PLATELET VOLUME 9.5 fL (7.4-11.4); MONOCYTES # (AUTO) 1.2 10^3/uL (0.0-1.0); MONOCYTES % (AUTO) 12.9 %; NEUTROPHILS # (AUTO) 5.9 10^3/uL (1.5-6.6); NEUTROPHILS % (AUTO) 65.7 %; PLT - PLATELET COUNT 157 10^3/uL (130-450); RED BLOOD COUNT 5.03 10^6/uL (4.70-6.10); RED CELL DISTRIBUTION WIDTH 13.8 % (12.0-15.0); WHITE BLOOD COUNT 8.9 x10^3/uL (4.8-10.8)
[2018-09-17 20:01] LABS: ALBUMIN/GLOBULIN RATIO 1.5 (1.0-2.2); BILIRUBIN,TOTAL 0.8 mg/dL (0.2-1.0); CALCIUM 9.2 mg/dL (8.5-10.3); CREATININE 1.3 mg/dL (0.6-1.2); TOTAL PROTEIN 6.6 g/dL (6.7-8.2)
== END 2018-09-17 23:59 | disposition home or self-care (01) ==
LOC: LAB.R 08:00
PROVIDERS: ATTEND Physician Assistant Medical
DX: R10.30 Lower abdominal pain, unspecified (principal)
CPT/HCPCS: 80053; 85025; 87086

== ENCOUNTER 2018-10-19 08:00 | Outpatient (CLI) | payer MEDICARE, OTHER ==
[2018-10-19 19:16] LABS: PSA FREE 3.687 ng/mL (0.16-2.81)
[2018-10-19 19:17] LABS: PSA TOTAL 19.488 ng/mL (0.000-2.000)
== END 2018-10-19 23:59 | disposition home or self-care (01) ==
LOC: LAB.WCP 08:00
PROVIDERS: ATTEND Urology
DX: R97.20 Elevated prostate specific antigen [PSA] (principal)
CPT/HCPCS: 36415; 84153; 84154

== ENCOUNTER → 2019-01-24 | Outpatient (CLI) | payer MEDICARE, OTHER ==
[2019-01-24 19:14] LABS: PSA FREE 3.29 ng/mL (0.16-2.81)
[2019-01-24 19:15] LABS: PSA TOTAL 11.32 ng/mL (0.000-2.000)
== END ==
LOC: LAB.WCP 08:00
PROVIDERS: ATTEND Urology
DX: R97.20 Elevated prostate specific antigen [PSA] (principal)
CPT/HCPCS: 36415; 84153; 84154

== ENCOUNTER 2019-03-11 20:16 | Outpatient (CLI) | payer MEDICARE, OTHER ==
--- NOTE | 2019-03-11 21:33 | Ultrasound Report ---
Reason: RT ARM PAIN Procedure Date: 03/11/2019 Accession Number: [id number] / [id number] Procedure: US - Duplex Ext Veins Right CPT Code: FULL RESULT: EXAM: RIGHT LOWER EXTREMITY VENOUS ULTRASOUND. EXAM DATE: 03/11/2019 09:16 PM. CLINICAL HISTORY: Right arm pain. COMPARISON: None. TECHNIQUE: Real-time sonographic vascular imaging was performed by the motorized squad commanding officer through the lower extremity utilizing both color-flow and Doppler spectral analysis. Multiple physician representative static images were saved for review. FINDINGS: Common Femoral Vein (CFV): Normal. CFV-GSV Junction: Normal. Profunda Femoral Vein (PFV): Normal. Femoral Vein (FV) Prox: Normal. Femoral Vein (FV) Mid: Normal. Femoral Vein (FV) Dist: Normal. Popliteal Vein: Normal. Posterior Tibial Veins: Normal. Peroneal Veins: Normal. Contralateral Side CFV: Normal. Other: None. IMPRESSION: No evidence for deep venous thrombosis. RADIA The call report notification system was initiated by Dr. Ryan Altamirano at 09:32 PM on 03/11/2019.
== END 2019-03-11 20:17 | disposition home or self-care (01) ==
LOC: DI 20:16
PROVIDERS: ATTEND Physician Assistant Medical
DX: M79.601 Pain in right arm (principal)

== ENCOUNTER 2019-05-28 08:00 | Outpatient (CLI) | payer MEDICARE, OTHER ==
[2019-05-28 19:06] LABS: ALBUMIN 4.2 g/dL (3.2-5.5); ALBUMIN/GLOBULIN RATIO 1.9 (1.0-2.2); BILIRUBIN,TOTAL 1.5 mg/dL (0.2-1.0); CALCIUM 9.1 mg/dL (8.5-10.3); CREATININE 1.4 mg/dL (0.6-1.2); TOTAL PROTEIN 6.4 g/dL (6.7-8.2)
== END 2019-05-28 23:59 | disposition home or self-care (01) ==
LOC: LAB.WCP 08:00
PROVIDERS: ATTEND Family Medicine
DX: I10 Essential (primary) hypertension (principal); N28.9 Disorder of kidney and ureter, unspecified
CPT/HCPCS: 36415; 80053

== ENCOUNTER 2019-10-08 10:47 | Outpatient (CLI) | payer MEDICARE, OTHER ==
[2019-10-08 11:25] LABS: HGB - HEMOGLOBIN 15.7 g/dL (14.0-18.0); MEAN CORPUSCULAR HEMOGLOBIN 29.6 pg (27.0-31.0); MEAN CORPUSCULAR HGB CONC 33.8 g/dL (32.0-36.0); MEAN CORPUSCULAR VOLUME 87.6 fL (80.0-94.0); MEAN PLATELET VOLUME 10.4 fL (7.4-11.4); RED BLOOD COUNT 5.31 10^6/uL (4.70-6.10); RED CELL DISTRIBUTION WIDTH 13.2 % (12.0-15.0); WHITE BLOOD COUNT 5.7 x10^3/uL (4.8-10.8)
[2019-10-08 11:41] LABS: ALBUMIN 4.2 g/dL (3.2-5.5); ALBUMIN/GLOBULIN RATIO 1.6 (1.0-2.2); ALKALINE PHOSPHATASE 64 IU/L (42-121); ALT ALANINE AMINOTRANSFERASE 15 IU/L (10-60); AST ASPARTATE AMINOTRANSFERASE 16 IU/L (10-42); BILIRUBIN,TOTAL 1.3 mg/dL (0.2-1.0); BUN - BLOOD UREA NITROGEN 19 mg/dL (6-20); CALCIUM 9.4 mg/dL (8.5-10.3); CARBON DIOXIDE - CO2 27 mmol/L (21-32); CHLORIDE 106 mmol/L (101-111); CHOL/HDL RATIO 3.2 (<5.0); CHOLESTEROL 175 mg/dL; CREATININE 1.4 mg/dL (0.6-1.2); GLUCOSE 116 mg/dL (70-100); HDL CHOLESTEROL 54 mg/dL; LDL CHOLESTEROL,CALCULATED 106 mg/dL; SODIUM 142 mmol/L (135-145); TOTAL PROTEIN 6.8 g/dL (6.7-8.2); VLDL CHOLESTEROL 15 mg/dL
[2019-10-08 11:42] LABS: HB2 TOTAL 16.6 g/dL; HEMOGLOBIN A1C 0.58 g/dL; HEMOGLOBIN A1C % 5.3 % (4.6-6.2)
[2019-10-08 12:18] LABS: PSA FREE 3.515 ng/mL (0.16-2.81)
[2019-10-08 12:19] LABS: PSA TOTAL 13.668 ng/mL (0.000-2.000)
== END 2019-10-08 10:48 | disposition home or self-care (01) ==
LOC: LAB 10:47
PROVIDERS: ATTEND Family Medicine
DX: E78.5 Hyperlipidemia, unspecified (principal); I10 Essential (primary) hypertension; N28.9 Disorder of kidney and ureter, unspecified; R97.20 Elevated prostate specific antigen [PSA]
CPT/HCPCS: 36415; 80053; 80061; 83036; 83721; 84153; 84154; 85027

== ENCOUNTER 2020-10-13 17:17 | Emergency (ER) | payer MEDICARE, OTHER ==
--- OUTSIDE RECORDS SUMMARY | 2020-10-13 17:20 | EXTERNAL MEDICAL SUMMARY RPT | Continuity of Care Document ---
:1945 Demographics Phone Unavailable Preferred Language Comoran Marital Status Unknown Temple Affiliation Unknown Race Unknown Ethnic Group Unknown Author Organization [place] Address [address] [place] [address] Phone Care Team Providers Name Role Phone Steffi Unavailable Unavailable Steffi Unavailable Unavailable Allergies Encounters Medications date description facility [id number] gabapentin 300 MG Oral Capsule [facility] [id number] celecoxib 200 MG Oral Capsule [facility] ospital Problems date description facility [id number] Thoracic aortic ectasia [facility] l [id number] Congenital insufficiency of aortic valv e [facility] [id number] Abnormal findings on diagnostic imaging of [facility] abdominal r [id number] Unilateral primary osteoarthritis, righ t knee [facility] Procedures date description facility [id number] [facility] [id number] Finding [facility] [id number] Diagnosis [facility] [id number] [facility] Results Vital Signs date measurement value source [id number] weight_standard 75.69 lb [id number] weight_metric 34.33 kg [id number] temperature_standard 98.1 F [id number] temperature_metric 36.72 C [id number] height_standard 70 in [id number] height_metric 177.8 cm [id number] heart_rate 56 /min [id number] BP_systolic 140 mm[Hg] 56960784 BP_diastolic 78 mm[Hg] [id number] BMI 23.9 kg/m2
--- OUTSIDE RECORDS SUMMARY | 2020-10-13 17:37 | EXTERNAL MEDICAL SUMMARY RPT | Continuity of Care Document ---
:1945 Demographics Phone Unavailable Preferred Language Zambian Marital Status Unknown Restoration Affiliation Unknown Race Unknown Ethnic Group Unknown Author Organization [place] Address [address] [place] [address] Phone Care Team Providers Name Role Phone Steffi Unavailable Unavailable Steffi Unavailable Unavailable Allergies Encounters Medications date description facility [id number] gabapentin 300 MG Oral Capsule [facility] [id number] celecoxib 200 MG Oral Capsule [facility] ospital Problems date description facility [id number] Thoracic aortic ectasia [facility] l [id number] Congenital insufficiency of aortic valv e [facility] [id number] Abnormal findings on diagnostic imaging of [facility] abdominal r [id number] Unilateral primary osteoarthritis, righ t knee [facility] Procedures date description facility [id number] [facility] [id number] Finding [facility] [id number] Diagnosis [facility] [id number] [facility] Results Vital Signs date measurement value source [id number] weight_standard 75.69 lb 34750030 weight_metric 34.33 kg 10210097 temperature_standard 98.1 F 29886150 temperature_metric 36.72 C 48333013 height_standard 70 in [id number] height_metric 177.8 cm 93850432 heart_rate 56 /min 76772279 BP_systolic 140 mm[Hg] 70489362 BP_diastolic 78 mm[Hg] 81121400 BMI 23.9 kg/m2
[2020-10-13] MEDS ORDERED: SODIUM CHLORIDE 0.9% 1,000 ML IV STA (17:40)
[2020-10-13 18:00] LABS: BASOPHILS # (AUTO) 0.1 10^3/uL (0.0-0.1); EOSINOPHILS # (AUTO) 0.3 10^3/uL (0.0-0.7); EOSINOPHILS % (AUTO) 5.8 %; HCT - HEMATOCRIT 47.4 % (42.0-52.0); HGB - HEMOGLOBIN 15.5 g/dL (14.0-18.0); LYMPHOCYTES # (AUTO) 1.8 10^3/uL (1.5-3.5); MEAN CORPUSCULAR HEMOGLOBIN 28.9 pg (27.0-31.0); MEAN CORPUSCULAR HGB CONC 32.7 g/dL (32.0-36.0); MEAN CORPUSCULAR VOLUME 88.4 fL (80.0-94.0); MEAN PLATELET VOLUME 10.6 fL (7.4-11.4); MONOCYTES # (AUTO) 0.5 10^3/uL (0.0-1.0); MONOCYTES % (AUTO) 10.7 %; NEUTROPHILS # (AUTO) 2.4 10^3/uL (1.5-6.6); NEUTROPHILS % (AUTO) 47.3 %; PLT - PLATELET COUNT 164 10^3/uL (130-450); RED BLOOD COUNT 5.36 10^6/uL (4.70-6.10); RED CELL DISTRIBUTION WIDTH 13.2 % (12.0-15.0)
[2020-10-13 18:03] LABS: INR 1.1 (0.8-1.2); PT - PROTHROMBIN TIME 12.6 secs (9.9-12.6)
[2020-10-13 18:11] LABS: ALBUMIN 4.6 g/dL (3.2-5.5); ALBUMIN/GLOBULIN RATIO 2.1 (1.0-2.2); BILIRUBIN,TOTAL 0.7 mg/dL (0.2-1.0); CALCIUM 9.1 mg/dL (8.5-10.3); CREATININE 1.4 mg/dL (0.6-1.2); POTASSIUM 4.4 mmol/L (3.5-5.0); TOTAL PROTEIN 6.8 g/dL (6.7-8.2)
[2020-10-13] MEDS ORDERED: amLODIPine 5 MG TABLET PO STA (18:37)
[2020-10-13] MEDS ORDERED: METOPROLOL TARTRATE 50 MG TABLET PO STA (18:38)
--- NOTE | 2020-10-13 18:49 | CT Report ---
PROCEDURE: HEAD WO INDICATIONS: stroke-like symptoms. Left-sided weakness. TECHNIQUE: Noncontrast 4.5 mm thick angled axial sections acquired from the foramen magnum to the vertex. For r adiation dose reduction, the following was used: automated exposure control, adjustment of mA and/or kV according to patient size. COMPARISON: CT brain 11/16/2017, MRI brain 11/17/2017. FINDINGS: Image quality: Diagnostic. CSF spaces: Basal cisterns are patent. No extra-axial fluid collections. There is mild cerebral vol ume loss with prominence of ventricles and sulci. Brain: No intracranial hemorrhage, mass, or mass effect. There are periventricular and subcortical ma tter hypodensities consistent with moderate chronic small vessel ischemic changes. These appear incre ased compared to the prior study. The amador-white matter junction appears grossly preserved. Skull and face: Calvarium and visualized facial bones are intact, without suspicious lesions. Sinuses: Visualized sinuses demonstrate mild mucosal thickening within the ethmoid sinuses. The mast oid air cells are clear. IMPRESSION: 1. No definite acute intracranial abnormality. 2. Moderate chronic white matter small vessel ischemic changes, increased compared to the prior study . If there is persistent clinical suspicion for supposed acute process, further evaluation may be obt ained with MRI. Reviewed by: Randall Hightower MD on 10/13/2020 6:48 PM PDT Approved by: Randall Hightower MD on 10/13/2020 6:48 PM PDT Station ID: [id number]
--- NOTE | 2020-10-13 19:14 | ED Physician Documentation ---
History of Present Illness - Stated complaint Stated Complaint: CONFUSION, LEFT ARM NUMBNESS - Chief complaint Chief Complaint: Neuro - History obtained from History obtained from: Patient - Additonal information Additional information: 74-year-old man with past medical history of high blood pressure, atypical migraines, renal mass status post nephrectomy, p/w acute LUE weakness and numbness yesterday and confusion, lasting 20-25 minutes with difficulty speaking around 1:30pm, resolving on its own. He has had similar episodes over the past 4 years and was diagnosed with atypical migraines but this one was worse and had new onset weakness. He is now asymptomatic. Review of Systems Ten Systems: 10 systems reviewed and negative Neurologic: reports: Generalized weakness, Confused, Altered mental status PD PAST MEDICAL HISTORY - Past Medical History Cardiovascular: Hypertension Respiratory: None Neuro: None Endocrine/Autoimmune: Other : None HEENT: None Musculoskeletal: Osteoarthritis, Chronic back pain Derm: None - Past Surgical History Past Surgical History: Yes General: Other Derm: Skin cancer surgery - Present Medications Home Medications: Ambulatory Orders Medication Instructions Recorded Confirmed Tamsulosin [Flomax] 0.4 mg ORAL DAILY 10/21/14 10/13/20 Multivitamin [Theragran] 1 each PO DAILY 11/16/17 10/13/20 [place]-3/Dha/Epa/Fish Oil [Fish Oil 1,000 mg PO DAILY 11/16/17 10/13/20 Conc 1,000 mg Softgel] Celecoxib [Celebrex] 200 mg PO DAILY 10/13/20 10/13/20 carvediloL [Coreg] 12.5 mg PO DAILY 10/13/20 10/13/20 - Allergies Allergies/Adverse Reactions: Allergies Allergy/AdvReac Type Severity Reaction Status Date / Time oxacillin AdvReac Unknown Verified 10/13/20 17:21 - Social History Does the pt smoke?: No Smoking Status: Never smoker Does the pt have substance abuse?: No - Immunizations Immunizations are current?: Yes - POLST Patient has POLST: Yes POLST Status: DNR PD ED PE NORMAL - Vitals Vital signs reviewed: Yes - General General: Alert and oriented X 3, No acute distress, Well developed/nourished - HEENT HEENT: Atraumatic, PERRL, EOMI - Neck Neck: Supple, no meningeal sign - Cardiac Cardiac: RRR - Respiratory Respiratory: No respiratory distress, Clear bilaterally - Abdomen Abdomen: Non tender, Non distended - Derm Derm: Normal color, Warm and dry - Extremities Extremities: No deformity - Neuro Neuro: Alert and oriented X 3, testing consultant 2-12 intact, No motor deficit, No sensory deficit - Psych Psych: Normal mood, Normal affect Results - Vitals Vitals: Vital Signs - 24 hr 10/13/20 10/13/20 10/13/20 17:21 19:28 19:45 Temperature 36.6 C 36.7 C 36.7 C Heart Rate 63 71 71 Respiratory 20 19 19 Rate Blood Pressure 187/100 H 143/99 H 143/99 H O2 Saturation 97 98 98 Oxygen O2 Source Room air - Labs Labs: Laboratory Tests 10/13/20 10/13/20 10/13/20 17:51 17:51 17:51 WBC 5.0 RBC 5.36 Hgb 15.5 Hct 47.4 MCV 88.4 MCH 28.9 MCHC 32.7 RDW 13.2 Plt Count 164 MPV 10.6 Neut # (Auto) 2.4 Lymph # (Auto) 1.8 Rooks # (Auto) 0.5 Eos # (Auto) 0.3 Baso # (Auto) 0.1 Absolute Nucleated RBC 0.00 Nucleated RBC % 0.0 PT 12.6 INR 1.1 Sodium 140 Potassium 4.4 Chloride 107 Carbon Dioxide 28 Anion Gap 5.0 L BUN 20 Creatinine 1.4 H Estimated GFR (MDRD) 50 L Glucose 119 H Calcium 9.1 Total Bilirubin 0.7 AST 17 ALT 16 Alkaline Phosphatase 60 Total Protein 6.8 Albumin 4.6 Globulin 2.2 Albumin/Globulin Ratio 2.1 Lipase 44 PD MEDICAL DECISION MAKING - ED course ED course: Discussed with patient that he is likely experiencing TIAs of increasing frequency and strongly recommended admission to observation for further work-up including CTA head and neck, MRI, telemetry monitoring, however patient prefers to follow-up outpatient and understands risks. I advised to return immediately if he experiences further neurologic symptoms and he and his voice understanding. Departure - Departure Disposition: 01 Home, Self Care Clinical Impression: TIA (transient ischemic attack) Condition: Stable Instructions: TIA Comments: You were seen in the Emergency department for neurologic symptoms concerning for transient ischemic attack versus atypical migraine. A CT of your head was completed that showed nonspecific white matter changes, but no evidence of an obvious stroke. You should start taking a baby aspirin daily as part of your routine medications. Your primary doctor may decide to add on a cholesterol medicine and losartan or lisinopril. For complete work-up you will likely need a CTA head and neck or ultrasound of the neck, MRI head, telemetry monitoring, and possible repeat echocardiogram as recommended by a neurologist. Please return to the emergency department immediately if you experience any new or worsening symptoms or have other concerns. Discharge Date/Time: 10/13/20 20:14
[2020-10-13 19:45] VITALS: BP 143/99
== END 2020-10-13 20:14 | disposition home or self-care (01) ==
LOC: ED 17:17
DX: G45.9 Transient cerebral ischemic attack, unspecified (principal); I10 Essential (primary) hypertension; Z66 Do not resuscitate
CPT/HCPCS: 36415; 70450; 80053; 83690; 85025; 85610; 96360; 99284; A9270

== ENCOUNTER 2020-12-14 08:28 | Outpatient (CLI) | payer MEDICARE ==
--- NOTE | 2020-12-14 11:35 | XRAY Report ---
PROCEDURE: Elbow 3 View LT INDICATIONS: CONTUSION OF L ELBOW TECHNIQUE: 3 views of the elbow were acquired. COMPARISON: None FINDINGS: Bones: No fractures or dislocations. No suspicious bony lesions. Soft tissues: No elbow joint effusion. No suspicious soft tissue calcifications. IMPRESSION: No trauma found, no effusion or loose body seen. Reviewed by: Mehdi Wallace MD on 12/14/2020 11:34 AM PDT Approved by: Mehdi Wallace MD on 12/14/2020 11:34 AM PDT Station ID: [id number]
== END 2020-12-14 23:59 | disposition home or self-care (01) ==
LOC: DI.N 08:28
PROVIDERS: ATTEND Physician Assistant Medical
DX: S50.02XA Contusion of left elbow, initial encounter (principal)

== ENCOUNTER 2020-12-22 15:25 | Outpatient (CLI) | payer MEDICARE ==
--- NOTE | 2020-12-23 09:16 | XRAY Report ---
PROCEDURE: Elbow 3 View LT INDICATIONS: CONTUSION OF L ELBOW TECHNIQUE: 3 views of the elbow were acquired. COMPARISON: 12/14/2020. FINDINGS: Bones: No fractures or dislocations. No periosteal reaction. No suspicious bony lesions. Soft tissues: No elbow joint effusion. No suspicious soft tissue calcifications. Increased swelling at the olecranon. IMPRESSION: No fracture demonstrated. Increased swelling at the olecranon. This could be due to olecranon bursitis. Reviewed by: Alistair Hernandez MD on 12/23/2020 9:15 AM PDT Approved by: Alistair Hernandez MD on 12/23/2020 9:15 AM PDT Station ID: [id number]
== END 2020-12-22 15:26 | disposition home or self-care (01) ==
LOC: DI.N 15:25
PROVIDERS: ATTEND Physician Assistant Medical
DX: S50.02XA Contusion of left elbow, initial encounter (principal)

== ENCOUNTER 2020-12-25 00:24 | Emergency (ER) | payer MEDICARE ==
--- NOTE | 2020-12-25 00:51 | ED Physician Documentation ---
PD HPI FOCAL NEURO - Stated complaint Stated Complaint: SIGNS OF STROKE - Chief complaint Chief Complaint: Neuro - History obtained from History obtained from: Patient - History of Present Illness Timing - onset: Enter time (22:00), Today Timing - details: Abrupt onset Severity of deficit: Mild Weakness: Arm, Hand, Leg, Foot, Right Associated symptoms: No: Headache, Nausea / vomiting, Seizure, Syncope, Fall, Head injury, Chest pain, Neck pain, Back pain, Fever Contributing factors: negative: Anticoagulated Baseline status: positive: A&OX3, ambulatory, indep Recently seen: Not recently seen - Additional information Additional information: c/o sudden onset RLE weakness at 10 PM while at home at rest. he feels the leg is weak when he tries to raise it or bear weight. He was driven to ED by private vehicle ( drove patient), and he noticed that in trying to get in and out of the car, his right arm and ultrasonic hand solderer seemed week, as well. He feels these symptoms have nearly resolved by the time of this evaluation Review of Systems Constitutional: reports: Reviewed and negative Eyes: reports: Reviewed and negative Ears: reports: Reviewed and negative Nose: reports: Reviewed and negative Throat: reports: Reviewed and negative Cardiac: reports: Reviewed and negative Respiratory: reports: Reviewed and negative GI: reports: Reviewed and negative : reports: Reviewed and negative PD PAST MEDICAL HISTORY - Past Medical History Past Medical History: Yes Cardiovascular: Hypertension Respiratory: None Neuro: TIA Endocrine/Autoimmune: Other : None HEENT: None Musculoskeletal: Osteoarthritis, Chronic back pain Derm: None - Past Surgical History Past Surgical History: Yes 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) Derm: Skin cancer surgery - Present Medications Home Medications: Ambulatory Orders Medication Instructions Recorded Confirmed Tamsulosin [Flomax] 0.4 mg ORAL DAILY 10/21/14 12/25/20 Multivitamin [Theragran] 1 each PO DAILY 11/16/17 12/25/20 [place]-3/Dha/Epa/Fish Oil [Fish Oil 1,000 mg PO DAILY 11/16/17 12/25/20 Conc 1,000 mg Softgel] Celecoxib [Celebrex] 200 mg PO DAILY 10/13/20 12/25/20 carvediloL [Coreg] 12.5 mg PO DAILY 10/13/20 12/25/20 - Allergies Allergies/Adverse Reactions: Allergies Allergy/AdvReac Type Severity Reaction Status Date / Time oxacillin AdvReac Unknown Verified 12/25/20 00:40 - Living Situation Living Arrangement: reports: At home - Social History Does the pt smoke?: No Smoking Status: Never smoker Does the pt have substance abuse?: No - Immunizations Immunizations are current?: Yes - POLST Patient has POLST: Yes POLST Status: DNR PD ED PE NORMAL - Vitals Vital signs reviewed: Yes - General General: Alert and oriented X 3, No acute distress, Well developed/nourished - HEENT HEENT: Moist mucous membranes - Neck Neck: Supple, no meningeal sign - Cardiac Cardiac: RRR, No murmur - Respiratory Respiratory: No respiratory distress, Clear bilaterally - Abdomen Abdomen: Soft, Non tender - Derm Derm: Normal color, Warm and dry - Extremities Extremities: No edema - Neuro Neuro: Alert and oriented X 3, hay baler 2-12 intact, No motor deficit, No sensory deficit, Normal speech Eye Opening: Spontaneous Motor: Obeys Commands Verbal: Oriented GCS Score: 15 NIHSS - Level of Consciousness Level of consciousness: (0) Alert, Keenly responsive LOC Questions: (0) Answers both Q's correct LOC Commands: (0) Performs both correctly - Gaze Best Gaze: (0) Normal - Visual Visual: (0) No loss - Facial Palsy Facial Palsy: (0) Normal, symmetrical movement - Motor Arms (both separate) Motor Arm (right): (0) No drift Motor Arm (left): (0) No drift - Motor Legs (both separate) Motor Leg (right): (0) No drift Motor Leg (left): (0) No drift - Limb Ataxia Limb Ataxia: (0) Absent - Sensory Sensory: (0) Normal - Best Language Best Language: (0) No aphasia - Dysarthria Dysarthria: (0) Normal - Extinction and Inattention (formally neg Extinction and inattention: (0) No abnormality - Total Score/Results Total Score/Result: 0 Results - Vitals Vitals: Vital Signs - 24 hr 12/25/20 12/25/20 12/25/20 00:27 00:36 01:06 Temperature 36.1 C L 36.1 C L Heart Rate 66 66 68 Respiratory 22 22 21 Rate Blood Pressure 190/101 H 190/101 H 162/120 H O2 Saturation 98 98 98 12/25/20 12/25/20 12/25/20 01:30 02:06 02:34 Temperature Heart Rate 59 L 58 L 62 Respiratory 18 13 21 Rate Blood Pressure 148/83 H 160/90 H 128/85 H O2 Saturation 98 96 95 12/25/20 12/25/20 12/25/20 03:00 03:19 03:35 Temperature 36.2 C L 36.3 C L Heart Rate 61 69 69 Respiratory 21 35 H 21 Rate Blood Pressure 128/85 H 133/114 H 133/94 H O2 Saturation 95 96 96 Oxygen O2 Source Room air - EKG (time done) No standard instances Rate: Rate (enter#) (55) Rhythm: NSR [place]: LAD, Anterior hemiblock Intervals: Normal MO QRS: Normal Ischemia: Normal ST segments - Labs Labs: Laboratory Tests 12/25/20 12/25/20 12/25/20 00:36 00:36 00:36 WBC 6.6 RBC 4.76 Hgb 13.7 L Hct 41.5 L MCV 87.2 MCH 28.8 MCHC 33.0 RDW 13.1 Plt Count 172 MPV 10.7 Neut # (Auto) 2.9 Lymph # (Auto) 2.5 [place] # (Auto) 0.7 Eos # (Auto) 0.4 Baso # (Auto) 0.0 Absolute Nucleated RBC 0.00 Nucleated RBC % 0.0 PT 13.3 H INR 1.2 APTT 47.4 H Sodium 138 Potassium 4.2 Chloride 106 Carbon Dioxide 24 Anion Gap 8.0 BUN 24 H Creatinine 1.4 H Estimated GFR (MDRD) 50 L Glucose 108 H Calcium 9.2 Total Bilirubin 1.0 AST 17 ALT 13 Alkaline Phosphatase 55 Troponin I High Sens Total Protein 6.3 L Albumin 4.1 Globulin 2.2 Albumin/Globulin Ratio 1.9 Lipase 38 Urine Color Urine Clarity Urine pH Ur Specific Cisco Urine Protein Urine Glucose (UA) Urine Ketones Urine Occult Blood Urine Nitrite Urine Bilirubin Urine Urobilinogen Ur Leukocyte Esterase Ur Microscopic Review Urine Culture Comments 12/25/20 12/25/20 00:36 01:27 WBC RBC Hgb Hct MCV MCH MCHC RDW Plt Count MPV Neut # (Auto) Lymph # (Auto) [place] # (Auto) Eos # (Auto) Baso # (Auto) Absolute Nucleated RBC Nucleated RBC % PT INR APTT Sodium Potassium Chloride Carbon Dioxide Anion Gap BUN Creatinine Estimated GFR (MDRD) Glucose Calcium Total Bilirubin AST ALT Alkaline Phosphatase Troponin I High Sens 5.2 Total Protein Albumin Globulin Albumin/Globulin Ratio Lipase Urine Color YELLOW Urine Clarity CLEAR Urine pH 6.0 Ur Specific Cisco <=1.005 Urine Protein NEGATIVE Urine Glucose (UA) NEGATIVE Urine Ketones NEGATIVE Urine Occult Blood TRACE-LYSE Urine Nitrite NEGATIVE Urine Bilirubin NEGATIVE Urine Urobilinogen 0.2 (NORMAL) Ur Leukocyte Esterase NEGATIVE Ur Microscopic Review NOT INDICATED Urine Culture Comments NOT INDICATED - Rads (name of study) CTH Radiology: Prelim report reviewed, See rad report PD MEDICAL DECISION MAKING - ED course Complexity details: reviewed old records, reviewed results, re-evaluated patient, considered differential, d/w patient ED course: telestroke consult obtained (Dr. 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 He reviewed this CT result and contacted me again with recommendation to admit for further observation and study to include MRI brain, MRA head without contrast, echo, and carotid duplex dopplers. He does not recommend thrombolysis due to symptoms having resolved and not a candidate for endovascular therapy as unable to eval for LVO. I discussed these recommendations with the patient and he does not want to be transferred. I explained that MRI is not available at [facility] until Monday and that MRI is one of the tests the neurologist recommends. Patient initially says he wants to be discharged and will follow up with his neurologist. He then relents and agrees to consider IH. Unfortunately [facility] has no beds available. I informed patient of this and I recommended that I contact other hospitals to ascertain bed availability at an appropriate facility such as [facility], [facility]. Patient refuses these options, says he does not want to be transferred anywhere besides [facility] and, as there are no beds available, insists on being discharged at this time. Departure - Departure Disposition: 01 Home, Self Care Clinical Impression: TIA (transient ischemic attack) Qualifiers: Transient cerebral ischemia type: unspecified Qualified Code(s): G45.9 - Transient cerebral ischemic attack, unspecified Condition: Stable Instructions: ED Transient Ischemic Attack Follow-Up: Ivory Vieira PA-C [Primary Care Provider] - Comments: As we discussed, I agree with the neurology consult's recommendations. These include admission to the hospital for further testing and observation. Amongst the tests recommended by the neurologist are MRI of your brain, MRA of head with out contrast, cardiac echo, and ultrasound of your carotid arteries. He also listed standard recommendations regarding blood thinners such as aspirin and plavix. As we discussed, MRI is not available at [facility] until Monday and thus I recommend transfer to another facility that has this capability. You have decided to leave against this advice. Please return at any time you wish to be reevaluated. Contact your primary care providers (neurology would be ideal if available) to discuss whether further testing can be arranged in the outpatient setting. Discharge Date/Time: 12/25/20 03:35
[2020-12-25 00:55] LABS: BASOPHILS % (AUTO) 0.6 %; EOSINOPHILS # (AUTO) 0.4 10^3/uL (0.0-0.7); EOSINOPHILS % (AUTO) 5.8 %; HCT - HEMATOCRIT 41.5 % (42.0-52.0); HGB - HEMOGLOBIN 13.7 g/dL (14.0-18.0); LYMPHOCYTES # (AUTO) 2.5 10^3/uL (1.5-3.5); LYMPHOCYTES % (AUTO) 38.5 %; MEAN CORPUSCULAR HEMOGLOBIN 28.8 pg (27.0-31.0); MEAN CORPUSCULAR VOLUME 87.2 fL (80.0-94.0); MEAN PLATELET VOLUME 10.7 fL (7.4-11.4); MONOCYTES # (AUTO) 0.7 10^3/uL (0.0-1.0); MONOCYTES % (AUTO) 11.3 %; NEUTROPHILS # (AUTO) 2.9 10^3/uL (1.5-6.6); NEUTROPHILS % (AUTO) 43.5 %; PLT - PLATELET COUNT 172 10^3/uL (130-450); RED BLOOD COUNT 4.76 10^6/uL (4.70-6.10); RED CELL DISTRIBUTION WIDTH 13.1 % (12.0-15.0); WHITE BLOOD COUNT 6.6 x10^3/uL (4.8-10.8)
[2020-12-25 01:03] LABS: INR 1.2 (0.8-1.2); PT - PROTHROMBIN TIME 13.3 secs (9.9-12.6)
[2020-12-25 01:10] LABS: PARTIAL THROMBOPLASTIN TIME 47.4 secs (24.9-33.3)
[2020-12-25 01:12] LABS: ALBUMIN 4.1 g/dL (3.2-5.5); ALBUMIN/GLOBULIN RATIO 1.9 (1.0-2.2); CALCIUM 9.2 mg/dL (8.5-10.3); CREATININE 1.4 mg/dL (0.6-1.2); POTASSIUM 4.2 mmol/L (3.5-5.0); TOTAL PROTEIN 6.3 g/dL (6.7-8.2)
[2020-12-25 01:36] LABS: BILIRUBIN,URINE NEGATIVE (NEGATIVE); GLUCOSE, URINE (UA) NEGATIVE (NEGATIVE); KETONES,URINE (UA) NEGATIVE (NEGATIVE); LEUKOCYTE ESTERASE, URINE NEGATIVE (NEGATIVE); NITRITE,URINE NEGATIVE (NEGATIVE); OCCULT BLOOD,URINE TRACE-LYSE (NEGATIVE); PROTEIN,URINE NEGATIVE (NEGATIVE); UROBILINOGEN,URINE 0.2 (NORMAL) E.U./dL (NORMAL)
[2020-12-25 01:37] LABS: CLARITY,URINE CLEAR (CLEAR)
[2020-12-25 03:37] VITALS: BP 133/94
--- NOTE | 2020-12-25 06:59 | CT Report ---
PROCEDURE: Head W/O Stroke Protocol INDICATIONS: right sided weakness TECHNIQUE: Noncontrast 4.5 mm thick angled axial sections acquired from the foramen magnum to the vertex. For r adiation dose reduction, the following was used: automated exposure control, adjustment of mA and/or kV according to patient size. COMPARISON: 11/12/2020. FINDINGS: Image quality: Excellent. CSF spaces: Basal cisterns are patent. No extra-axial fluid collections. The ventricles are symmet brooks in size and shape. Brain: No intracranial bleeds or masses. There is cerebral volume loss for age, with resultant vent ricular and sulcal prominence. There are periventricular and deep white matter chronic small vessel i schemic changes. There is intracranial internal carotid artery atherosclerosis. Skull and face: Calvarium and visualized facial bones appear intact, without suspicious lesions. Sinuses: Visualized sinuses and mastoids are clear. IMPRESSION: No acute intracranial disease process. Reviewed by: Ashlie Rincon MD, PhD on 12/25/2020 6:58 AM PDT Approved by: Ashlie Rincon MD, PhD on 12/25/2020 6:58 AM PDT Station ID: [id number]
== END 2020-12-25 03:35 | disposition home or self-care (01) ==
LOC: ED 00:24
DX: G45.9 Transient cerebral ischemic attack, unspecified (principal); I10 Essential (primary) hypertension; Z90.5 Acquired absence of kidney
CPT/HCPCS: 36415; 80053; 81001; 81003; 83690; 84484; 85025; 85610; 85730; 87086; 93005; 99284

== ENCOUNTER 2021-01-07 08:00 | Outpatient (CLI) | payer MEDICARE ==
[2021-01-07 18:27] LABS: BASOPHILS # (AUTO) 0.1 10^3/uL (0.0-0.1); BASOPHILS % (AUTO) 0.9 %; EOSINOPHILS # (AUTO) 0.4 10^3/uL (0.0-0.7); EOSINOPHILS % (AUTO) 7.2 %; HGB - HEMOGLOBIN 14.4 g/dL (14.0-18.0); LYMPHOCYTES # (AUTO) 1.7 10^3/uL (1.5-3.5); LYMPHOCYTES % (AUTO) 31.4 %; MEAN CORPUSCULAR HEMOGLOBIN 28.7 pg (27.0-31.0); MEAN CORPUSCULAR HGB CONC 32.7 g/dL (32.0-36.0); MEAN CORPUSCULAR VOLUME 87.8 fL (80.0-94.0); MEAN PLATELET VOLUME 11.4 fL (7.4-11.4); MONOCYTES # (AUTO) 0.6 10^3/uL (0.0-1.0); MONOCYTES % (AUTO) 10.8 %; NEUTROPHILS # (AUTO) 2.7 10^3/uL (1.5-6.6); NEUTROPHILS % (AUTO) 49.3 %; PLT - PLATELET COUNT 195 10^3/uL (130-450); RED BLOOD COUNT 5.01 10^6/uL (4.70-6.10); RED CELL DISTRIBUTION WIDTH 12.8 % (12.0-15.0); WHITE BLOOD COUNT 5.5 x10^3/uL (4.8-10.8)
[2021-01-07 18:30] LABS: ALBUMIN/GLOBULIN RATIO 1.7 (1.0-2.2); BILIRUBIN,TOTAL 0.8 mg/dL (0.2-1.0); CALCIUM 9.2 mg/dL (8.5-10.3); CREATININE 1.1 mg/dL (0.6-1.2); POTASSIUM 4.1 mmol/L (3.5-5.0); TOTAL PROTEIN 6.4 g/dL (6.7-8.2)
== END 2021-01-07 23:59 | disposition home or self-care (01) ==
LOC: LAB.WCP 08:00
PROVIDERS: ATTEND Physician Assistant Medical
DX: I63.9 Cerebral infarction, unspecified (principal)
CPT/HCPCS: 36415; 80053; 82728; 85025

== ENCOUNTER 2021-01-23 08:37 | Outpatient (CLI) | payer MEDICARE | END 2021-01-23 08:38 | disposition EMS.NT | LOC: EMS 08:37 | DX: R50.9 Fever, unspecified (principal); R35.0 Frequency of micturition ==

== ENCOUNTER 2021-01-23 12:50 | Outpatient (CLI) | payer MEDICARE | END 2021-01-23 23:59 | disposition home or self-care (01) | LOC: LAB.N 12:50 | PROVIDERS: ATTEND Family Medicine | DX: R50.9 Fever, unspecified (principal) | CPT/HCPCS: 87077; 87086; 87181 ==

== ENCOUNTER 2021-02-08 12:13 | Outpatient (CLI) | payer MEDICARE ==
[2021-02-08 17:48] LABS: INR 1.2 (0.8-1.2); PT - PROTHROMBIN TIME 12.9 secs (9.9-12.6)
== END 2021-02-08 23:59 | disposition home or self-care (01) ==
LOC: LAB.WCP 12:13
PROVIDERS: ATTEND Psychiatry & Neurology Neurology
DX: I63.9 Cerebral infarction, unspecified (principal)
CPT/HCPCS: 36415; 81599; 83090; 85240; 85245; 85246; 85300; 85303; 85306; 85379; 85384; 85610; 85613; 85730

== ENCOUNTER 2021-04-21 08:00 | Outpatient (CLI) | payer MEDICARE ==
[2021-04-21 14:24] LABS: CHOLESTEROL 94 mg/dL; HDL CHOLESTEROL 48 mg/dL; TRIGLYCERIDES 28 mg/dL
== END 2021-04-21 23:59 ==
LOC: LAB 08:00
PROVIDERS: ATTEND Physician Assistant Medical
DX: I63.9 Cerebral infarction, unspecified (principal)
CPT/HCPCS: 36415; 80061; 83721

== ENCOUNTER 2021-04-21 12:37 | Emergency (ER) | payer MEDICARE ==
[2021-04-21 12:47] VITALS: BP 169/96
--- NOTE | 2021-04-21 13:24 | ED Physician Documentation ---
PD HPI ALTERED MENTAL STATUS - Stated complaint Stated Complaint: OFF BALANCE, DIZZY - Chief complaint Chief Complaint: Neuro - History obtained from History obtained from: Patient - History of Present Illness Timing - onset: How many hours ago (3) Timing - duration: Minutes (30) Timing - details: Gradual onset (he says he was not feeling well with general weakness and malaise this morning. Noted onset of feeling off balance with some vertigo feeling 3 hours ago, lasting 1/2 hour, and then improved. General weakness is improved now as well. He had prior CVA with right weakness mild. He called Neurologist.), Now resolved Quality / character: Other (feeling off balance with vertigo.). No: Confused, Disoriented Associated symptoms: General weakness (prior to dizziness). No: Fever, Headache, Dyspnea, Cough, NVD Contributing factors: No: Recent med change, Recent illness, Recent injury, Intoxicated [place]line status: Alert and oriented X 3, Walker. No: Confused, Disoriented Similar symptoms before: Has not had sx before (has not had this balance problem and dizzy prior. Previous CVA was right sided weakness and trouble speaking.) Review of Systems Constitutional: reports: Fatigue (today). denies: Fever, Myalgias Eyes: reports: Other (small subconjuctival hemorrhage yesterday without noted injury.). 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) Derm: Skin cancer surgery - Present Medications Home Medications: Ambulatory Orders Medication Instructions Recorded Confirmed Tamsulosin [Flomax] 0.4 mg ORAL DAILY 10/21/14 12/25/20 Multivitamin [Theragran] 1 each PO DAILY 11/16/17 12/25/20 [place]-3/Dha/Epa/Fish Oil [Fish Oil 1,000 mg PO DAILY 11/16/17 12/25/20 Conc 1,000 mg Softgel] Celecoxib [Celebrex] 200 mg PO DAILY 10/13/20 12/25/20 carvediloL [Coreg] 12.5 mg PO DAILY 10/13/20 12/25/20 - Allergies Allergies/Adverse Reactions: Allergies Allergy/AdvReac Type Severity Reaction Status Date / Time oxacillin AdvReac Unknown Verified 04/21/21 12:47 - Social History Does the pt smoke?: No Smoking Status: Never smoker Does the pt have substance abuse?: No - Immunizations Immunizations are current?: Yes - POLST Patient has POLST: Yes POLST Status: DNR PD ED PE NORMAL - Vitals Vital signs reviewed: Yes - General General: Well developed/nourished. No: Alert and oriented X 3 - HEENT HEENT: PERRL (medial right conjunctiva with red blotch c/w subconjunctival hemorrhage. ), EOMI, Pharynx benign - Neck Neck: Supple, no meningeal sign, No adenopathy - Cardiac Cardiac: RRR, No murmur - Respiratory Respiratory: Clear bilaterally - Abdomen Abdomen: Soft, Non tender - Derm Derm: Normal color, Warm and dry - Extremities Extremities: No tenderness to palpate, Normal ROM s pain, No edema, No calf tenderness / cord - Neuro Neuro: Alert and oriented X 3, No motor deficit, Normal speech Results - Vitals Vitals: Oxygen O2 Source Room air - Labs Labs: Laboratory Tests 04/21/21 04/21/21 04/21/21 13:23 13:23 13:23 WBC 4.2 L RBC 4.70 Hgb 13.7 L Hct 41.1 L MCV 87.4 MCH 29.1 MCHC 33.3 RDW 13.7 Plt Count 150 MPV 10.6 Neut # (Auto) 1.9 Lymph # (Auto) 1.4 L [place] # (Auto) 0.6 Eos # (Auto) 0.3 Baso # (Auto) 0.1 Absolute Nucleated RBC 0.00 Nucleated RBC % 0.0 PT 13.1 H INR 1.2 APTT 49.9 H Sodium 141 Potassium 4.2 Chloride 106 Carbon Dioxide 28 Anion Gap 7.0 BUN 19 Creatinine 1.2 Estimated GFR (MDRD) 59 L Glucose 108 H Calcium 9.4 Total Bilirubin 1.1 H AST 26 ALT 31 Alkaline Phosphatase 59 Total Protein 6.1 L Albumin 4.0 Globulin 2.0 L Albumin/Globulin Ratio 1.9 - Rads (name of study) head CT Radiology: Prelim report reviewed (old lacunar infarcts without change. No acute process. ), See rad report PD MEDICAL DECISION MAKING - ED course Complexity details: considered differential (could have been peripheral vertigo, but with history of CVA, can get CT to ensure no hemorrhage. SYmtpoms are resolved so more TIA rather than new stroke. He says he has had carotid studies, ECHO with bubble study, MRIs in the past year. No occlusions. 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 Your head CT does not show any acute bleeding, swelling, obvious acute abnormality. The old lacunar infarcts are seen. I would continue your usual medications. Stay normally hydrated. Continue with your clopidogrel and aspirin. 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 Return if recurring symptoms. Discharge Date/Time: 04/21/21 15:56
[2021-04-21 13:29] LABS: BASOPHILS # (AUTO) 0.1 10^3/uL (0.0-0.1); BASOPHILS % (AUTO) 1.2 %; EOSINOPHILS # (AUTO) 0.3 10^3/uL (0.0-0.7); EOSINOPHILS % (AUTO) 6.4 %; HCT - HEMATOCRIT 41.1 % (42.0-52.0); HGB - HEMOGLOBIN 13.7 g/dL (14.0-18.0); LYMPHOCYTES # (AUTO) 1.4 10^3/uL (1.5-3.5); MEAN CORPUSCULAR HEMOGLOBIN 29.1 pg (27.0-31.0); MEAN CORPUSCULAR HGB CONC 33.3 g/dL (32.0-36.0); MEAN CORPUSCULAR VOLUME 87.4 fL (80.0-94.0); MEAN PLATELET VOLUME 10.6 fL (7.4-11.4); MONOCYTES # (AUTO) 0.6 10^3/uL (0.0-1.0); NEUTROPHILS # (AUTO) 1.9 10^3/uL (1.5-6.6); NEUTROPHILS % (AUTO) 45.4 %; PLT - PLATELET COUNT 150 10^3/uL (130-450); RED CELL DISTRIBUTION WIDTH 13.7 % (12.0-15.0); WHITE BLOOD COUNT 4.2 x10^3/uL (4.8-10.8)
[2021-04-21 13:42] LABS: ALBUMIN/GLOBULIN RATIO 1.9 (1.0-2.2); BILIRUBIN,TOTAL 1.1 mg/dL (0.2-1.0); CALCIUM 9.4 mg/dL (8.5-10.3); CREATININE 1.2 mg/dL (0.6-1.2); POTASSIUM 4.2 mmol/L (3.5-5.0); TOTAL PROTEIN 6.1 g/dL (6.7-8.2)
[2021-04-21 13:53] LABS: INR 1.2 (0.8-1.2); PT - PROTHROMBIN TIME 13.1 secs (9.9-12.6)
[2021-04-21 14:01] LABS: PARTIAL THROMBOPLASTIN TIME 49.9 secs (24.9-33.3)
--- NOTE | 2021-04-21 14:29 | CT Report ---
PROCEDURE: HEAD WO INDICATIONS: ataxia and dizzy briefly yesterday; prior CVA TECHNIQUE: Noncontrast 4.5 mm thick angled axial sections acquired from the foramen magnum to the vertex. For r adiation dose reduction, the following was used: automated exposure control, adjustment of mA and/or kV according to patient size. COMPARISON: CT at without contrast, 12/25/2020. MRI brain, 10/18/2017. FINDINGS: Image quality: Excellent. CSF spaces: Basal cisterns are patent. No extra-axial fluid collections. Ventricles are normal in size and shape. Brain: No midline shift. No intracranial masses or hemorrhage. There are old lacunar infarcts invol ving the dal[place] radiata bilaterally. Mild cerebral volume loss and periventricular white matter chron ic small vessel ischemic changes. Skull and face: Calvarium and visualized facial bones are intact, without suspicious lesions. Sinuses: Visualized sinuses and mastoids are clear. IMPRESSION: 1. No acute intracranial abnormalities. 2. Old lacunar infarcts bilaterally. If there is strong clinical suspicion for acute CVA, MRI is ady mmended for follow-up evaluation. 3. Cerebral volume loss and periventricular matter chronic small vessel ischemic changes. Reviewed by: Reagan Martínez MD on 04/21/2021 2:27 PM PST Approved by: Reagan Martínez MD on 04/21/2021 2:27 PM PST Station ID: [id number]
== END 2021-04-21 15:56 | disposition home or self-care (01) ==
LOC: ED 12:37
DX: G45.0 Vertebro-basilar artery syndrome (principal); H11.31 Conjunctival hemorrhage, right eye; I10 Essential (primary) hypertension
CPT/HCPCS: 36415; 80053; 80061; 83721; 85025; 85610; 85730; 99283; 99284

== ENCOUNTER 2021-06-03 07:00 | Outpatient (CLI) | payer MEDICARE ==
[2021-06-03 17:56] LABS: BASOPHILS % (AUTO) 0.7 %; EOSINOPHILS # (AUTO) 0.3 10^3/uL (0.0-0.7); EOSINOPHILS % (AUTO) 4.9 %; HCT - HEMATOCRIT 47.4 % (42.0-52.0); HGB - HEMOGLOBIN 15.5 g/dL (14.0-18.0); LYMPHOCYTES # (AUTO) 1.5 10^3/uL (1.5-3.5); LYMPHOCYTES % (AUTO) 26.6 %; MEAN CORPUSCULAR HGB CONC 32.7 g/dL (32.0-36.0); MEAN CORPUSCULAR VOLUME 88.8 fL (80.0-94.0); MEAN PLATELET VOLUME 11.2 fL (7.4-11.4); MONOCYTES # (AUTO) 0.6 10^3/uL (0.0-1.0); MONOCYTES % (AUTO) 10.6 %; NEUTROPHILS # (AUTO) 3.1 10^3/uL (1.5-6.6); PLT - PLATELET COUNT 163 10^3/uL (130-450); RED BLOOD COUNT 5.34 10^6/uL (4.70-6.10); RED CELL DISTRIBUTION WIDTH 13.3 % (12.0-15.0); WHITE BLOOD COUNT 5.5 x10^3/uL (4.8-10.8)
[2021-06-03 18:01] LABS: INR 1.1 (0.8-1.2); PT - PROTHROMBIN TIME 12.2 secs (9.9-12.6)
[2021-06-03 18:04] LABS: ALBUMIN 4.5 g/dL (3.2-5.5); ALBUMIN/GLOBULIN RATIO 1.9 (1.0-2.2); ALKALINE PHOSPHATASE 66 IU/L (42-121); ALT ALANINE AMINOTRANSFERASE 40 IU/L (10-60); AST ASPARTATE AMINOTRANSFERASE 33 IU/L (10-42); BILIRUBIN,TOTAL 1.2 mg/dL (0.2-1.0); BUN - BLOOD UREA NITROGEN 22 mg/dL (6-20); CALCIUM 9.5 mg/dL (8.5-10.3); CARBON DIOXIDE - CO2 27 mmol/L (21-32); CHLORIDE 104 mmol/L (101-111); CHOL/HDL RATIO 1.9 (<5.0); CHOLESTEROL 107 mg/dL; CREATININE 1.1 mg/dL (0.6-1.2); GFR - MDRD 65 (>89); GLUCOSE 99 mg/dL (70-100); HDL CHOLESTEROL 55 mg/dL; LDL CHOLESTEROL,CALCULATED 40 mg/dL; LDL/HDL RATIO 0.7 (<3.6); POTASSIUM 4.2 mmol/L (3.5-5.0); SODIUM 139 mmol/L (135-145); TOTAL PROTEIN 6.9 g/dL (6.7-8.2); TRIGLYCERIDES 62 mg/dL; VLDL CHOLESTEROL 12 mg/dL
[2021-06-03 18:12] LABS: PSA FREE 3.43 ng/mL (0.16-2.81)
[2021-06-03 18:13] LABS: PSA TOTAL 11.52 ng/mL (0.000-2.000)
== END 2021-06-03 23:59 | disposition home or self-care (01) ==
LOC: LAB.WCP 07:00
PROVIDERS: ATTEND Physician Assistant Medical
DX: I63.9 Cerebral infarction, unspecified (principal); Z51.81 Encounter for therapeutic drug level monitoring; D64.9 Anemia, unspecified; R97.20 Elevated prostate specific antigen [PSA]
CPT/HCPCS: 36415; 80053; 80061; 83721; 84153; 84154; 85025; 85610

== ENCOUNTER 2021-06-24 15:05 | Outpatient (CLI) | payer MEDICARE ==
--- NOTE | 2021-06-24 17:07 | Ultrasound Report ---
PROCEDURE: Duplex Ext Veins Right INDICATIONS: LOCALIZED SWELLING OF RIGHT FOOT TECHNIQUE: Real-time imaging, as well as color and pulse Doppler interrogation, were performed of the lower extr emity deep veins from the inguinal ligament to the popliteal fossa. COMPARISON: None. FINDINGS: The deep veins are normally compressible, and free of intraluminal thrombus. Color and pu lse Doppler demonstrate normal phasic intraluminal flow. There is normal augmentation response to di stal compression maneuver. IMPRESSION: No sonographic evidence of deep venous thrombosis in the right lower extremity. Reviewed by: David Olson MD on 06/24/2021 5:06 PM PST Approved by: David Olson MD on 06/24/2021 5:06 PM [facility] Station ID: [id number]
== END 2021-06-24 15:06 | disposition home or self-care (01) ==
LOC: DI 15:05
PROVIDERS: ATTEND Psychiatry & Neurology Neurology
DX: R22.41 Localized swelling, mass and lump, right lower limb (principal)

== ENCOUNTER 2021-10-27 13:31 | Outpatient (CLI) | payer MEDICARE ==
[2021-10-27 13:45] LABS: BASOPHILS # (AUTO) 0.1 10^3/uL (0.0-0.1); BASOPHILS % (AUTO) 0.9 %; EOSINOPHILS # (AUTO) 0.3 10^3/uL (0.0-0.7); EOSINOPHILS % (AUTO) 5.3 %; HCT - HEMATOCRIT 46.2 % (42.0-52.0); HGB - HEMOGLOBIN 15.5 g/dL (14.0-18.0); LYMPHOCYTES # (AUTO) 1.6 10^3/uL (1.5-3.5); LYMPHOCYTES % (AUTO) 27.6 %; MEAN CORPUSCULAR HEMOGLOBIN 29.4 pg (27.0-31.0); MEAN CORPUSCULAR HGB CONC 33.5 g/dL (32.0-36.0); MEAN CORPUSCULAR VOLUME 87.7 fL (80.0-94.0); MEAN PLATELET VOLUME 10.9 fL (7.4-11.4); MONOCYTES # (AUTO) 0.5 10^3/uL (0.0-1.0); MONOCYTES % (AUTO) 8.6 %; NEUTROPHILS # (AUTO) 3.3 10^3/uL (1.5-6.6); NEUTROPHILS % (AUTO) 57.2 %; PLT - PLATELET COUNT 157 10^3/uL (130-450); RED BLOOD COUNT 5.27 10^6/uL (4.70-6.10); RED CELL DISTRIBUTION WIDTH 13.2 % (12.0-15.0); WHITE BLOOD COUNT 5.7 x10^3/uL (4.8-10.8)
[2021-10-27 14:01] LABS: ALBUMIN 4.4 g/dL (3.2-5.5); ALBUMIN/GLOBULIN RATIO 1.8 (1.0-2.2); BILIRUBIN,TOTAL 1.3 mg/dL (0.2-1.0); CALCIUM 9.9 mg/dL (8.5-10.3); CREATININE 1.2 mg/dL (0.6-1.2); POTASSIUM 4.4 mmol/L (3.5-5.0); TOTAL PROTEIN 6.8 g/dL (6.7-8.2)
== END 2021-10-27 13:32 | disposition home or self-care (01) ==
LOC: LAB 13:31
PROVIDERS: ATTEND Internal Medicine Nephrology
DX: N18.9 Chronic kidney disease, unspecified (principal); Z51.81 Encounter for therapeutic drug level monitoring
CPT/HCPCS: 36415; 80053; 82043; 82570; 83970; 84156; 85025

== ENCOUNTER 2021-10-28 10:35 | Outpatient (CLI) | payer MEDICARE ==
[2021-10-28 10:59] LABS: CREATININE,URINE 110.5 mg/dL; MICROALBUM/CREATININE RATIO,UR 37.1 ug/mg (<30.0); MICROALBUMIN,URINE 4.1 mg/dL (0-300.0); PROTEIN/CREATININE RATIO,URINE 0.1 (<=0.2)
[2021-10-28 10:59] LABS: INR 1.1 (0.8-1.2); PT - PROTHROMBIN TIME 12.1 secs (9.9-12.6)
== END 2021-10-28 10:36 | disposition home or self-care (01) ==
LOC: LAB 10:35
PROVIDERS: ATTEND Internal Medicine Nephrology
DX: N18.9 Chronic kidney disease, unspecified (principal); Z51.81 Encounter for therapeutic drug level monitoring
CPT/HCPCS: 36415; 82043; 82570; 84156; 85610

== ENCOUNTER 2021-10-28 18:45 | Outpatient (CLI) | payer MEDICARE ==
--- NOTE | 2021-10-29 16:15 | Ultrasound Report ---
PROCEDURE: Retroperitoneal INDICATIONS: HEMATURIA TECHNIQUE: Real-time scanning was performed of the retroperitoneal organs, with image documentation. COMPARISON: CT abdomen pelvis 03/15/2012 FINDINGS: Kidneys: Right kidney is absent; left kidney measures 12.3 cm long. Left renal cortical thickness i s 1.3 cm. No solid masses or hydronephrosis. Staghorn calculus is present without obstruction. Multi ple foci of decreased echogenicity are identified. The largest measures 3.1 x 2.4 x 2.8 cm. Bladder: Pre-void bladder volume is 173 mL. Post-void residual is 72 mL. Pre-void images demonstra te no intraluminal masses or stones. On pre-void images, only the left ureteral jet is noted with co mary Doppler interrogation. (Of note, ureteral jets may not be detectable in up to 25% of cases due t o insufficient differences in specific gravity between ureteral and bladder urine). Miscellaneous: No free abdominal fluid. 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 Right kidney is absent. Simple left renal cysts. Reviewed by: Rosetta Lambert MD on 10/29/2021 4:14 PM PDT Approved by: Rosetta Lambert MD on 10/29/2021 4:14 PM PDT Station ID: [id number]
== END 2021-10-28 18:46 | disposition home or self-care (01) ==
LOC: DI 18:45
PROVIDERS: ATTEND Physician Assistant Medical
DX: R31.9 Hematuria, unspecified (principal); N20.0 Calculus of kidney; N28.1 Cyst of kidney, acquired; N18.9 Chronic kidney disease, unspecified; Z51.81 Encounter for therapeutic drug level monitoring; Z90.5 Acquired absence of kidney
CPT/HCPCS: 36415; 82043; 82570; 84156; 85610

== ENCOUNTER 2021-11-06 09:19 | Outpatient (CLI) | payer MEDICARE ==
--- NOTE | 2021-11-06 18:36 | CT Report ---
PROCEDURE: Abdomen/Pelvis WO INDICATIONS: NEPHROLITHIASIS TECHNIQUE: Noncontrast 5 mm thick sections acquired from the diaphragms to the symphysis. 5 mm coronal and sagi ttal reformats were then performed. For radiation dose reduction, the following was used: automated exposure control, adjustment of mA and/or kV according to patient size. COMPARISON: None. FINDINGS: Image quality: Excellent. ABDOMEN: Lung bases: Mild motion artifact at the bases. Lung bases are otherwise clear. Heart size is normal. Solid organs: Liver and spleen are normal in size. Gallbladder is unremarkable Pancreas is normal in contours. No adrenal nodules. Patient is status post right nephrectomy. There is compensatory enl argement of the left kidney. There are multiple cortical and renal sinus cysts which appear simple an d measures simple fluid attenuation. There are multiple nonobstructing nephroliths. The largest withi n the interpolar region measures up to 1.3 cm in greatest diameter. An additional calcification in th e lower pole measures 1 cm in greatest diameter. Additional smaller calcifications noted throughout t he left kidney. Ureter is difficult to track given lack of significant intra-abdominal fat. Peritoneum and bowel: Unenhanced bowel loops demonstrate normal wall thickness and caliber. No free fluid or air. Colonic diverticulosis without evidence of diverticulitis. Nodes and vessels: No retroperitoneal or mesenteric adenopathy by size criteria. Aorta and inferior vena cava are normal in caliber. Scattered vascular calcifications. Miscellaneous: No ventral hernias. PELVIS: Genitourinary: The bladder is only mildly distended somewhat limiting evaluation. 4 mm calcification noted along the posterior bladder wall likely representing an intraluminal stone. Miscellaneous: Small fat-containing left femoral hernia. No adenopathy. Bones: Sclerosis noted within the left femoral head neck junction measuring 1.5 cm in greatest centim eter. No additional osseous lesions. Age-appropriate degenerative changes of the spine and hips. No v ertebral body compression fractures. IMPRESSION: Multiple nonobstructing left-sided nephroliths measuring up to 1.3 cm in greatest diameter. Compensat ory enlargement of the left kidney status post right nephrectomy. 4 mm bladder calcification. Marked enlargement of the prostate. Nonspecific region of sclerosis within the left femoral head neck junction. Recommend correlation wit h PSA and consider MRI versus bone scan for further evaluation. Multiple simple cysts of the left kidney. Reviewed by: Wilmer Dooley DO on 11/06/2021 5:35 PM [facility] Approved by: Wilmer Dooley DO on 11/06/2021 5:35 PM [facility] Station ID: [id number]
== END 2021-11-06 09:20 | disposition home or self-care (01) ==
LOC: DI 09:19
PROVIDERS: ATTEND Urology
DX: N20.0 Calculus of kidney (principal); N21.0 Calculus in bladder; N40.0 Benign prostatic hyperplasia without lower urinary tract symptoms; N28.1 Cyst of kidney, acquired

== ENCOUNTER 2022-02-07 22:18 | Outpatient (CLI) | payer MEDICARE ==
--- NOTE | 2022-02-08 11:57 | Ultrasound Report ---
PROCEDURE: Retroperitoneal INDICATIONS: NEPHROLITHIASIS TECHNIQUE: Real-time scanning was performed of the kidneys and bladder, with image documentation. COMPARISON: Renal ultrasound 10/28/2021. FINDINGS: Kidneys: Right kidney is surgically absent. Left kidney measures 13.5 cm in length, with cortical th ickness of 1.6 cm. There is moderate left-sided hydronephrosis with dilation of the renal calyces. Mu ltiple simple appearing renal cysts are seen, largest of which measures up to 3.6 cm in diameter at t he inferior pole. Several echogenic foci are seen in the renal sinus measuring up to 6 mm that are guthrie spicious for renal calculi. The distal left ureter is not well-visualized. Bladder: Pre-void bladder volume is 366 mL. Post-void residual is 44 mL. Pre-void images demonstra te no intraluminal masses or stones. On pre-void images, no left ureteral jets are noted with color Doppler interrogation. (Of note, ureteral jets may not be detectable in up to 25% of cases due to in sufficient differences in specific gravity between ureteral and bladder urine). Miscellaneous: No free abdominal fluid. Prostate measures 7.1 x 6.9 x 6.3 cm. IMPRESSION: 1.Moderate left hydroureteronephrosis. The left ureter is not well visualized, and an obstructing ure teral calculus is not excluded. CT KUB could be performed for further evaluation if indicated clinica lly. 2.Multiple nonobstructing left renal calculi. Simple left renal cysts are present. 3.Right kidney is surgically absent. 4.Marked prostatomegaly. Reviewed by: David Olson MD on 02/08/2022 11:55 AM PDT Approved by: David Olson MD on 02/08/2022 11:55 AM PDT Station ID: [id number]
== END 2022-02-07 22:19 | disposition home or self-care (01) ==
LOC: DI 22:18
PROVIDERS: ATTEND Urology
DX: N13.2 Hydronephrosis with renal and ureteral calculous obstruction (principal); N28.1 Cyst of kidney, acquired; Z90.5 Acquired absence of kidney; N40.0 Benign prostatic hyperplasia without lower urinary tract symptoms

== ENCOUNTER 2022-02-08 07:01 | Outpatient (CLI) | payer MEDICARE ==
--- NOTE | 2022-02-08 14:53 | Ultrasound Report ---
PROCEDURE: Duplex Lwr Ext Arterial Bilat INDICATIONS: PVD TECHNIQUE: Color and pulse Doppler interrogation was performed of both lower extremity arterial systems, with im age documentation. COMPARISON: None FINDINGS: Right lower extremity: Common femoral artery: 75 cm/sec, with triphasic flow. Deep femoral artery: 53 cm/sec, with I phasic flow. Proximal superficial femoral artery: 76 cm/sec, with I phasic flow. Mid superficial femoral artery: 80 cm/sec, with triphasic flow. Distal superficial femoral artery: 62 cm/sec, with triphasic flow. Popliteal artery: 55 cm/sec, with triphasic flow. Posterior tibial artery: 104 cm/sec, with triphasic flow. Anterior tibial artery/dorsalis pedis: 59/46 cm/sec, with triphasic flow. Diallo-scale imaging description: No significant plaque Left lower extremity: Common femoral artery: 85 cm/sec, with triphasic flow. Deep femoral artery: 56 cm/sec, with triphasic flow. Proximal superficial femoral artery: 84 cm/sec, with triphasic flow. Mid superficial femoral artery: 96 cm/sec, with triphasic flow. Distal superficial femoral artery: 58 cm/sec, with triphasic flow. Popliteal artery: 57 cm/sec, with triphasic flow. Posterior tibial artery: 94 cm/sec, with I phasic flow. Anterior tibial artery/dorsalis pedis: 76/27 cm/sec, with triphasic flow. Diallo-scale imaging description: No significant plaque IMPRESSION: No significant plaque and no significant stenosis by imaging and waveform criteria. Reviewed by: Bobby Kamara on 02/08/2022 2:52 PM PDT Approved by: Bobby Kamara on 02/08/2022 2:52 PM PDT Station ID: [id number]
== END 2022-02-08 07:02 | disposition home or self-care (01) ==
LOC: DI 07:01
PROVIDERS: ATTEND Family Medicine
DX: I73.9 Peripheral vascular disease, unspecified (principal)
CPT/HCPCS: 93925

== ENCOUNTER 2022-02-17 11:34 | Outpatient (CLI) | payer MEDICARE ==
[2022-02-17 11:49] LABS: BILIRUBIN,URINE NEGATIVE (NEGATIVE); GLUCOSE, URINE (UA) NEGATIVE (NEGATIVE); KETONES,URINE (UA) NEGATIVE (NEGATIVE); LEUKOCYTE ESTERASE, URINE TRACE (NEGATIVE); NITRITE,URINE NEGATIVE (NEGATIVE); OCCULT BLOOD,URINE LARGE (NEGATIVE); PROTEIN,URINE 30 mg/dL (NEGATIVE); UROBILINOGEN,URINE 0.2 (NORMAL) E.U./dL (NORMAL)
[2022-02-17 12:00] LABS: BACTERIA,URINE Rare /HPF (None Seen); CLARITY,URINE CLEAR (CLEAR); SQUAMOUS EPITHELIAL CELL,UR NONE SEEN (<= Few)
== END 2022-02-17 11:35 | disposition home or self-care (01) ==
LOC: LAB 11:34
PROVIDERS: ATTEND Urology
DX: N20.0 Calculus of kidney (principal)
CPT/HCPCS: 81001; 87086

== ENCOUNTER 2022-04-04 08:52 | Outpatient (CLI) | payer MEDICARE ==
[2022-04-04 09:11] LABS: BASOPHILS # (AUTO) 0.1 10^3/uL (0.0-0.1); BASOPHILS % (AUTO) 0.9 %; EOSINOPHILS # (AUTO) 0.3 10^3/uL (0.0-0.7); EOSINOPHILS % (AUTO) 5.3 %; HGB - HEMOGLOBIN 13.8 g/dL (14.0-18.0); LYMPHOCYTES # (AUTO) 1.8 10^3/uL (1.5-3.5); LYMPHOCYTES % (AUTO) 33.9 %; MEAN CORPUSCULAR HGB CONC 32.9 g/dL (32.0-36.0); MEAN CORPUSCULAR VOLUME 88.2 fL (80.0-94.0); MEAN PLATELET VOLUME 10.7 fL (7.4-11.4); MONOCYTES # (AUTO) 0.6 10^3/uL (0.0-1.0); MONOCYTES % (AUTO) 10.6 %; NEUTROPHILS # (AUTO) 2.6 10^3/uL (1.5-6.6); NEUTROPHILS % (AUTO) 49.1 %; PLT - PLATELET COUNT 157 10^3/uL (130-450); RED BLOOD COUNT 4.76 10^6/uL (4.70-6.10); RED CELL DISTRIBUTION WIDTH 13.7 % (12.0-15.0); WHITE BLOOD COUNT 5.3 x10^3/uL (4.8-10.8)
[2022-04-04 09:23] LABS: GLUCOSE, URINE (UA) NEGATIVE (NEGATIVE); KETONES,URINE (UA) NEGATIVE (NEGATIVE); LEUKOCYTE ESTERASE, URINE TRACE (NEGATIVE); NITRITE,URINE POSITIVE (NEGATIVE); OCCULT BLOOD,URINE LARGE (NEGATIVE); PH,URINE 5.5 PH (5.0-7.5); PROTEIN,URINE 100 mg/dL (NEGATIVE); UROBILINOGEN,URINE 0.2 (NORMAL) E.U./dL (NORMAL)
[2022-04-04 09:37] LABS: ALBUMIN 4.3 g/dL (3.2-5.5); ALKALINE PHOSPHATASE 67 IU/L (42-121); ALT ALANINE AMINOTRANSFERASE 20 IU/L (10-60); AST ASPARTATE AMINOTRANSFERASE 18 IU/L (10-42); BILIRUBIN,TOTAL 1.2 mg/dL (0.2-1.0); BUN - BLOOD UREA NITROGEN 31 mg/dL (6-20); CALCIUM 9.8 mg/dL (8.5-10.3); CARBON DIOXIDE - CO2 27 mmol/L (21-32); CHLORIDE 106 mmol/L (101-111); CHOL/HDL RATIO 2.1 (<5.0); CHOLESTEROL 119 mg/dL; CREATININE 1.5 mg/dL (0.6-1.2); GFR - MDRD 46 (>89); GLUCOSE 112 mg/dL (70-100); HDL CHOLESTEROL 57 mg/dL; LDL CHOLESTEROL,CALCULATED 53 mg/dL; LDL/HDL RATIO 0.9 (<3.6); POTASSIUM 4.6 mmol/L (3.5-5.0); SODIUM 142 mmol/L (135-145); TOTAL PROTEIN 6.5 g/dL (6.7-8.2); TRIGLYCERIDES 44 mg/dL; VLDL CHOLESTEROL 9 mg/dL
[2022-04-04 09:39] LABS: CLARITY,URINE BLOODY (CLEAR)
[2022-04-04 09:41] LABS: BACTERIA,URINE None Seen /HPF (None Seen); BILIRUBIN,URINE NEGATIVE (NEGATIVE); ICTOTEST,URINE NEGATIVE; RBC,URINE TNTC /HPF (0-5); SQUAMOUS EPITHELIAL CELL,UR NONE SEEN (<= Few)
[2022-04-04 12:21] LABS: ESTIMATED AVERAGE GLUCOSE 105 mg/dL (70-100); HEMOGLOBIN A1c% 5.3 % (4.27-6.07)
== END 2022-04-04 08:53 | disposition home or self-care (01) ==
LOC: LAB 08:52
PROVIDERS: ATTEND Urology
DX: N20.0 Calculus of kidney (principal); I63.9 Cerebral infarction, unspecified; R73.01 Impaired fasting glucose
CPT/HCPCS: 36415; 80053; 80061; 81001; 83036; 83721; 85025; 87077; 87086; 87181

== ENCOUNTER 2022-05-05 07:58 | Outpatient (CLI) | payer MEDICARE ==
--- NOTE | 2022-05-05 09:21 | Ultrasound Report ---
PROCEDURE: Retroperitoneal INDICATIONS: NEPHROLITHIASIS TECHNIQUE: Real-time scanning was performed of the retroperitoneal organs, with image documentation. COMPARISON: 02/07/2022 FINDINGS: Kidneys: The right kidney is surgically absent. The left kidney measures 12.9 cm in length. The sarah x measures 1.4 cm in thickness. There are exophytic simple cyst arising from the upper and lower pole , both measuring 3.3 cm in diameter. Other simple cortical cysts are present. More than one nonobstructing stone is present, one in the midpole measuring 4 mm and one in the infer ior pole measuring 5 mm. There is no hydronephrosis. The proximal portion of the nephroureteral stent is seen well positioned in the renal pelvis. Bladder: Pre-void bladder volume is 284 mL. Post-void residual is 56 mL. Pre-void images demonstra te no intraluminal masses or stones. The distal portion of a nephroureteral stent is present in the u rinary bladder. The prostate gland is moderately enlarged measuring 5.7 x 5.5 x 6.9 cm. On pre-void i mages, the left ureteral jet is noted with color Doppler interrogation. (Of note, ureteral jets may not be detectable in up to 25% of cases due to insufficient differences in specific gravity between u reteral and bladder urine). Miscellaneous: No free abdominal fluid. IMPRESSION: 1. A few calculi, 5 mm and less are noted in the left kidney without causing obstruction. 2. Well-positioned nephroureteral stent. 3. Moderate postvoid residual in the urinary bladder. 4. Moderate prostatomegaly. Reviewed by: Alycia Casas MD on 05/05/2022 9:19 AM PST Approved by: Alycia Casas MD on 05/05/2022 9:19 AM PST Station ID: [id number]
--- NOTE | 2022-05-05 09:26 | XRAY Report ---
PROCEDURE: Abdomen 1 View X-Ray INDICATIONS: NEPHROLITHIASIS TECHNIQUE: One view of the abdomen acquired. COMPARISON: CT of abdomen and pelvis dated 11/06/2021 FINDINGS: Surgical changes and devices: Left-sided ureteral stent is seen in its expected location. Surgical cl ips are noted in right upper quadrant abdomen. Bowel: Bowel gas pattern is normal. Soft tissues: 4 mm calcification is seen in left renal fossa. A 3 mm calcification is also seen proje cting over left renal fossa. No gross right-sided renal calcifications are seen. Visualized solid org an contours appear normal in size. Bones: No suspicious bony lesions. IMPRESSION: Left-sided ureteral stent in place. Suggestion of multiple small left renal stones as above. Reviewed by: Renato Chavarria MD on 05/05/2022 9:25 AM PST Approved by: Renato Chavarria MD on 05/05/2022 9:25 AM [facility] Station ID: [id number]
== END 2022-05-05 07:59 | disposition home or self-care (01) ==
LOC: DI 07:58
PROVIDERS: ATTEND Physician Assistant Surgical
DX: Z96.0 Presence of urogenital implants (principal); N40.0 Benign prostatic hyperplasia without lower urinary tract symptoms; N20.0 Calculus of kidney

== ENCOUNTER 2022-05-18 12:46 | Outpatient (CLI) | payer MEDICARE ==
--- NOTE | 2022-05-18 18:15 | MRI Report ---
PROCEDURE: LUMBAR SPINE WO INDICATIONS: CHRONIC LOW BACK PAIN TECHNIQUE: Noncontrast sagittal T1 spin echo and T2 fast echo, sagittal STIR, axial T1 and T2 fast spin echo thr ough the lumbar spine. In cases with scoliosis, additional coronal T2 fast spin echo may be performe d. COMPARISON: None. FINDINGS: Image quality: Excellent. Alignment and Curvature: Mild levoconvex scoliotic curvature is seen. No significant AP alignment abnormality can be seen. Bone Marrow: Marrow is of normal overall signal. No acute vertebral body compression fractures. Spinal Cord: Conus medullaris terminates at the L1 level. Visualized cord demonstrates normal signa l and size. Paraspinous Soft Tissues: No paravertebral masses. Several left renal cysts are seen. The right kid virgilio is not seen. T12-L1: Moderate loss of disc height and signal are seen. No significant neural foraminal or central canal narrowing can be seen. L1-L2: At least moderate loss of disc height and disc signal can be seen. Moderate disc bulge is s een, which is eccentric to the right. A superimposed central disc protrusion is seen. Mild facet hyp ertrophy is seen. Moderate bilateral neuroforaminal narrowing can be seen, right worse than left. M ild to moderate central canal narrowing is seen. L2-L3: Moderate loss of disc height and signal are seen. Moderate disc bulge is seen, which is e ccentric to the right. A central disc extrusion is seen, with inferior migration of the disc material , as on series 2 image 12. Mild facet hypertrophy is seen. There is moderate to severe left-sided a nd at least moderate right-sided neuroforaminal narrowing. Compression is seen upon the exiting nerve roots. At least moderate central canal narrowing is seen, as on series 6 image 20. L3-L4: The disc height is well-preserved. There is loss of disc signal seen. Moderate disc bulge is seen at this level. There is a superimposed central disc extrusion, with superior migration of t he disc material, as on series 2 image 12. Moderate facet hypertrophy is seen. Associated hypertrop hy of the ligamentum flavum can be seen. Moderate to severe bilateral neural foraminal narrowing can be seen, with associated compression upon the exiting nerve roots. There is severe central canal na rrowing seen at this level. L4-L5: Moderate loss of disc height and signal are seen. Moderate disc bulge is seen at this level . A superimposed central disc protrusion is seen. Mild facet hypertrophy is seen. There is modera te to severe left-sided neuroforaminal narrowing, with a degree of compression upon the exiting left L4 nerve root. Moderate right-sided neuroforaminal narrowing is seen. Moderate central canal narrowi ng is seen. L5-S1: Moderate loss of disc height and signal are seen. Mild to moderate disc bulge is seen, which is eccentric to the right. A superimposed central disc protrusion is seen. Note is made of an annula r fissure posteriorly. Mild to moderate facet hypertrophy is seen. Moderate to severe bilateral neur al foraminal narrowing can be seen, with associated compression upon the exiting nerve roots. Prior right hemilaminectomy change can be seen. No significant central canal narrowing is seen. IMPRESSION: Multiple levels of lumbar spine degenerative change are seen, which are overall worst at the L3-L4 level. Several sites of significant neuroforaminal narrowing can be seen, with associated exiting nerve root compression. Mild levoconvex scoliotic curvature is seen. Prior right hemilaminectomy at L5-S1. Additional findings: Left renal cysts Right kidney not seen Reviewed by: Maxim Rich MD on 05/18/2022 5:13 PM [facility] Approved by: Maxim Rich MD on 05/18/2022 5:13 PM [place] Station ID: [id number]
== END 2022-05-18 12:47 | disposition home or self-care (01) ==
LOC: DI 12:46
PROVIDERS: ATTEND Physician Assistant Medical
DX: M47.816 Spondylosis without myelopathy or radiculopathy, lumbar region (principal); M48.061 Spinal stenosis, lumbar region without neurogenic claudication; M51.35 Other intervertebral disc degeneration, thoracolumbar region; M51.36 Other intervertebral disc degeneration, lumbar region; M51.26 Other intervertebral disc displacement, lumbar region; M51.37 Other intervertebral disc degeneration, lumbosacral region; M48.07 Spinal stenosis, lumbosacral region; M47.817 Spondylosis without myelopathy or radiculopathy, lumbosacral region; M51.27 Other intervertebral disc displacement, lumbosacral region

== ENCOUNTER 2023-01-20 10:45 | Outpatient (CLI) | payer MEDICARE ==
[2023-01-20 11:02] LABS: BASOPHILS # (AUTO) 0.1 10^3/uL (0.0-0.1); BASOPHILS % (AUTO) 0.9 %; EOSINOPHILS # (AUTO) 0.2 10^3/uL (0.0-0.7); HCT - HEMATOCRIT 45.8 % (42.0-52.0); HGB - HEMOGLOBIN 15.1 g/dL (14.0-18.0); LYMPHOCYTES # (AUTO) 1.6 10^3/uL (1.5-3.5); LYMPHOCYTES % (AUTO) 28.5 %; MEAN CORPUSCULAR HEMOGLOBIN 29.5 pg (27.0-31.0); MEAN CORPUSCULAR VOLUME 89.6 fL (80.0-94.0); MEAN PLATELET VOLUME 10.7 fL (7.4-11.4); MONOCYTES # (AUTO) 0.5 10^3/uL (0.0-1.0); MONOCYTES % (AUTO) 9.3 %; NEUTROPHILS # (AUTO) 3.3 10^3/uL (1.5-6.6); NEUTROPHILS % (AUTO) 57.1 %; PLT - PLATELET COUNT 142 10^3/uL (130-450); RED BLOOD COUNT 5.11 10^6/uL (4.70-6.10); RED CELL DISTRIBUTION WIDTH 12.9 % (12.0-15.0); WHITE BLOOD COUNT 5.7 x10^3/uL (4.8-10.8)
[2023-01-20 11:15] LABS: ALBUMIN 4.2 g/dL (3.2-5.5); ALBUMIN/GLOBULIN RATIO 2.2 (1.0-2.2); ALKALINE PHOSPHATASE 71 IU/L (42-121); ALT ALANINE AMINOTRANSFERASE 20 IU/L (10-60); AST ASPARTATE AMINOTRANSFERASE 19 IU/L (10-42); BILIRUBIN,TOTAL 1.1 mg/dL (0.2-1.0); BUN - BLOOD UREA NITROGEN 19 mg/dL (6-20); CALCIUM 9.8 mg/dL (8.5-10.3); CARBON DIOXIDE - CO2 30 mmol/L (21-32); CHLORIDE 108 mmol/L (101-111); CHOL/HDL RATIO 1.8 (<5.0); CHOLESTEROL 96 mg/dL; CREATININE 1.3 mg/dL (0.6-1.3); GFR - MDRD 54 (>89); GLUCOSE 113 mg/dL (74-104); HDL CHOLESTEROL 53 mg/dL; LDL CHOLESTEROL,CALCULATED 28 mg/dL; LDL/HDL RATIO 0.5 (<3.6); POTASSIUM 4.3 mmol/L (3.5-4.5); SODIUM 140 mmol/L (135-145); TOTAL PROTEIN 6.1 g/dL (6.4-8.9); TRIGLYCERIDES 75 mg/dL (48-352); VLDL CHOLESTEROL 15 mg/dL
[2023-01-20 11:23] LABS: ESTIMATED AVERAGE GLUCOSE 105 mg/dL (70-100); HEMOGLOBIN A1c% 5.3 % (4.27-6.07)
== END 2023-01-20 10:46 | disposition home or self-care (01) ==
LOC: LAB 10:45
PROVIDERS: ATTEND Physician Assistant Medical
DX: R73.01 Impaired fasting glucose (principal); I63.9 Cerebral infarction, unspecified; E83.52 Hypercalcemia; I10 Essential (primary) hypertension
CPT/HCPCS: 36415; 80053; 80061; 83036; 83721; 83970; 85025

== ENCOUNTER 2023-02-16 11:26 | Outpatient (CLI) | payer MEDICARE ==
--- NOTE | 2023-02-16 12:53 | XRAY Report ---
PROCEDURE: Chest 2 View X-Ray INDICATIONS: ACUTE COUGH TECHNIQUE: 2 views of the chest were acquired. COMPARISON: None. FINDINGS: Surgical changes and devices: None. Lungs and pleura: No pleural effusions or pneumothorax. Lungs are clear. Mediastinum: Mediastinal contours appear normal. Heart size is normal. Bones and chest wall: No suspicious bony lesions. Overlying soft tissues appear unremarkable. IMPRESSION: No acute cardiopulmonary process. Reviewed by: Rosetta Lambert MD on 02/16/2023 12:52 PM PDT Approved by: Rosetta Lambert MD on 02/16/2023 12:52 PM PDT Station ID: [id number]
== END 2023-02-16 11:27 | disposition home or self-care (01) ==
LOC: DI 11:26
PROVIDERS: ATTEND Registered Nurse
DX: R05.1 Acute cough (principal)

== ENCOUNTER 2023-04-11 10:22 | Outpatient (CLI) | payer MEDICARE ==
--- NOTE | 2023-04-12 07:58 | XRAY Report ---
PROCEDURE: Lumbar Spine 2 View INDICATIONS: LOW BACK PAIN, RIGHT HIP PAIN TECHNIQUE: 3 views of the lumbar spine were acquired. COMPARISON: MRI lumbar spine, 05/18/2022. FINDINGS: Bones: 5 [id number] vertebrae are present. There is moderate levoscoliosis with apex at L2. N o vertebral body compression fractures. No suspicious bony lesions. Degenerative disc disease, mode rate at T11-T12, L1-L2 and L2-L3, mild at other levels. Moderate facet arthropathy at L3-L4, L4-L5 an d L5-S1. Soft tissues: Overlying bowel gas pattern is normal. No suspicious soft tissue calcifications. Inc reased fecal load. IMPRESSION: 1. Scoliosis. 2. Moderate degenerative disc and facet disease. Reviewed by: Reagan Martínez MD on 04/12/2023 7:57 AM PST Approved by: Reagan Martínez MD on 04/12/2023 7:57 AM PST Station ID: [id number]
--- NOTE | 2023-04-12 08:00 | XRAY Report ---
PROCEDURE: Hips 2V BILAT INDICATIONS: RIGHT HIP PAIN, LOW BACK PAIN TECHNIQUE: 2 views of each hip were acquired. COMPARISON: None. FINDINGS: Bones: No fractures or dislocations. No suspicious bony lesions. Mild symmetric hip and sacroiliac joint degeneration. Soft tissues: No suspicious soft tissue calcifications or masses. IMPRESSION: 1. No acute bony abnormality. 2. 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 Reviewed by: Reagan Martínez MD on 04/12/2023 7:58 AM [facility] Approved by: Reagan Martínez MD on 04/12/2023 7:58 AM [facility] Station ID: [id number]
== END 2023-04-11 10:23 | disposition home or self-care (01) ==
LOC: DI 10:22
PROVIDERS: ATTEND Physician Assistant Medical
DX: M16.0 Bilateral primary osteoarthritis of hip (principal); M47.898 Other spondylosis, sacral and sacrococcygeal region; M47.816 Spondylosis without myelopathy or radiculopathy, lumbar region; M51.36 Other intervertebral disc degeneration, lumbar region

== ENCOUNTER 2023-07-13 10:42 | Outpatient (CLI) | payer MEDICARE ==
[2023-07-13 11:04] LABS: CALCIUM 9.7 mg/dL (8.5-10.3); CREATININE 1.4 mg/dL (0.6-1.3); POTASSIUM 4.3 mmol/L (3.5-4.5)
[2023-07-13 11:24] LABS: PROTEIN/CREATININE RATIO,URINE 0.1 (<=0.2)
== END 2023-07-13 10:43 | disposition home or self-care (01) ==
LOC: LAB 10:42
PROVIDERS: ATTEND Internal Medicine Nephrology
DX: N18.31 Chronic kidney disease, stage 3a (principal)
CPT/HCPCS: 36415; 80048; 82570; 84156

== ENCOUNTER 2023-07-21 09:22 | Outpatient (CLI) | payer MEDICARE ==
[2023-07-21 10:01] LABS: BASOPHILS % (AUTO) 0.6 %; EOSINOPHILS # (AUTO) 0.3 10^3/uL (0.0-0.7); EOSINOPHILS % (AUTO) 5.6 %; HCT - HEMATOCRIT 45.9 % (42.0-52.0); LYMPHOCYTES # (AUTO) 1.7 10^3/uL (1.5-3.5); MEAN CORPUSCULAR HEMOGLOBIN 29.1 pg (27.0-31.0); MEAN CORPUSCULAR HGB CONC 32.7 g/dL (32.0-36.0); MONOCYTES # (AUTO) 0.6 10^3/uL (0.0-1.0); MONOCYTES % (AUTO) 11.1 %; NEUTROPHILS # (AUTO) 2.4 10^3/uL (1.5-6.6); NEUTROPHILS % (AUTO) 48.3 %; PLT - PLATELET COUNT 153 10^3/uL (130-450); RED BLOOD COUNT 5.16 10^6/uL (4.70-6.10); RED CELL DISTRIBUTION WIDTH 13.4 % (12.0-15.0)
[2023-07-21 10:03] LABS: ALBUMIN 4.3 g/dL (3.2-5.5); ALBUMIN/GLOBULIN RATIO 2.4 (1.0-2.2); ALKALINE PHOSPHATASE 70 IU/L (42-121); ALT ALANINE AMINOTRANSFERASE 18 IU/L (10-60); AST ASPARTATE AMINOTRANSFERASE 20 IU/L (10-42); BILIRUBIN,TOTAL 0.9 mg/dL (0.2-1.0); BUN - BLOOD UREA NITROGEN 21 mg/dL (6-20); CALCIUM 9.9 mg/dL (8.5-10.3); CARBON DIOXIDE - CO2 31 mmol/L (21-32); CHLORIDE 108 mmol/L (101-111); CHOL/HDL RATIO 1.8 (<5.0); CHOLESTEROL 105 mg/dL; CREATININE 1.3 mg/dL (0.6-1.3); GFR - MDRD 54 (>89); GLUCOSE 106 mg/dL (74-104); HDL CHOLESTEROL 59 mg/dL; LDL CHOLESTEROL,CALCULATED 35 mg/dL; LDL/HDL RATIO 0.6 (<3.6); POTASSIUM 4.6 mmol/L (3.5-4.5); SODIUM 142 mmol/L (135-145); TOTAL PROTEIN 6.1 g/dL (6.4-8.9); TRIGLYCERIDES 55 mg/dL (48-352); VLDL CHOLESTEROL 11 mg/dL
[2023-07-21 10:18] LABS: THYROID STIMULATING HORMONE 2.07 uIU/mL (0.34-5.60)
== END 2023-07-21 09:23 | disposition home or self-care (01) ==
LOC: LAB 09:22
PROVIDERS: ATTEND Physician Assistant Medical
DX: I12.9 Hypertensive chronic kidney disease with stage 1 through stage 4 chronic kidney disease, or unspecified chronic kidney disease (principal); N18.9 Chronic kidney disease, unspecified; C67.9 Malignant neoplasm of bladder, unspecified; N40.1 Benign prostatic hyperplasia with lower urinary tract symptoms; N13.8 Other obstructive and reflux uropathy; Z13.220 Encounter for screening for lipoid disorders; Z12.5 Encounter for screening for malignant neoplasm of prostate
CPT/HCPCS: 36415; 80053; 80061; 84443; 85025; G0103; 83721; 84153

== ENCOUNTER 2023-08-25 12:08 | Outpatient (CLI) | payer MEDICARE | END 2023-08-25 12:09 | disposition home or self-care (01) | LOC: LAB 12:08 | PROVIDERS: ATTEND Physician Assistant Medical | DX: R53.83 Other fatigue (principal); E21.3 Hyperparathyroidism, unspecified | CPT/HCPCS: 36415; 82607; 83970 ==

== ENCOUNTER 2023-10-11 13:21 | Outpatient (CLI) | payer MEDICARE ==
[2023-10-11 13:38] LABS: BASOPHILS % (AUTO) 0.6 %; EOSINOPHILS # (AUTO) 0.3 10^3/uL (0.0-0.7); EOSINOPHILS % (AUTO) 6.1 %; HCT - HEMATOCRIT 46.8 % (42.0-52.0); LYMPHOCYTES # (AUTO) 1.6 10^3/uL (1.5-3.5); LYMPHOCYTES % (AUTO) 31.6 %; MEAN CORPUSCULAR HEMOGLOBIN 28.7 pg (27.0-31.0); MEAN CORPUSCULAR HGB CONC 32.1 g/dL (32.0-36.0); MEAN CORPUSCULAR VOLUME 89.7 fL (80.0-94.0); MEAN PLATELET VOLUME 10.8 fL (7.4-11.4); MONOCYTES # (AUTO) 0.5 10^3/uL (0.0-1.0); MONOCYTES % (AUTO) 9.6 %; NEUTROPHILS # (AUTO) 2.5 10^3/uL (1.5-6.6); NEUTROPHILS % (AUTO) 51.7 %; PLT - PLATELET COUNT 144 10^3/uL (130-450); RED BLOOD COUNT 5.22 10^6/uL (4.70-6.10); RED CELL DISTRIBUTION WIDTH 13.2 % (12.0-15.0); WHITE BLOOD COUNT 4.9 x10^3/uL (4.8-10.8)
[2023-10-11 13:53] LABS: ALBUMIN 4.4 g/dL (3.2-5.5); CALCIUM 9.9 mg/dL (8.5-10.3); CREATININE 1.4 mg/dL (0.6-1.3); PHOSPHORUS 3.9 mg/dL (2.5-5.0); POTASSIUM 4.2 mmol/L (3.5-4.5)
[2023-10-11 14:14] LABS: FERRITIN 27.5 ng/mL (23.9-336.2)
[2023-10-12 13:04] LABS: BILIRUBIN,URINE NEGATIVE (NEGATIVE); GLUCOSE, URINE (UA) NEGATIVE (NEGATIVE); KETONES,URINE (UA) NEGATIVE (NEGATIVE); LEUKOCYTE ESTERASE, URINE NEGATIVE (NEGATIVE); NITRITE,URINE NEGATIVE (NEGATIVE); OCCULT BLOOD,URINE NEGATIVE (NEGATIVE); PROTEIN,URINE NEGATIVE (NEGATIVE); UROBILINOGEN,URINE 0.2 (NORMAL) E.U./dL (NORMAL)
[2023-10-12 13:26] LABS: CREATININE,URINE 135.2 mg/dL; MICROALBUM/CREATININE RATIO,UR 9.6 ug/mg (<30.0); MICROALBUMIN,URINE 1.3 mg/dL; PROTEIN/CREATININE RATIO,URINE 0.1 (<=0.2)
[2023-10-12 13:36] LABS: BACTERIA,URINE None Seen /HPF (None Seen); CLARITY,URINE CLEAR (CLEAR); MUCUS,URINE Few Strands; RBC,URINE None Seen /HPF (0-5); SQUAMOUS EPITHELIAL CELL,UR NONE SEEN (<= Few); WBC,URINE 0-3 /HPF (0-3)
== END 2023-10-11 13:22 | disposition home or self-care (01) ==
LOC: LAB 13:21
PROVIDERS: ATTEND Internal Medicine Nephrology
DX: I12.9 Hypertensive chronic kidney disease with stage 1 through stage 4 chronic kidney disease, or unspecified chronic kidney disease (principal); N18.31 Chronic kidney disease, stage 3a; N20.0 Calculus of kidney
CPT/HCPCS: 36415; 80069; 81001; 81003; 82043; 82306; 82570; 82728; 83540; 83970; 84156; 84466; 85025; 87086